=== PATIENT | female | born 1990 | race Caucasian/White ===

== ENCOUNTER → 2020-02-18 15:03 | Outpatient (BNVA) | payer SELFPAY | PROVIDERS: Visit Provider Nurse Practitioner Family | DX: R10.2 Pelvic and perineal pain (principal); N73.9 Female pelvic inflammatory disease, unspecified | CPT/HCPCS: 80053; 81000; 81025; 84450; 85025; 87070; 87491; 87591; 87661 ==

== ENCOUNTER → 2020-02-23 13:27 | Outpatient (BNVA) | payer SELFPAY | PROVIDERS: Visit Provider Nurse Practitioner Family | DX: R74.8 Abnormal levels of other serum enzymes (principal); Z11.59 Encounter for screening for other viral diseases | CPT/HCPCS: 86705; 86706; 86709; 86803; 87340 ==

== ENCOUNTER 2020-07-21 14:37 | Emergency (ER) | payer OTHER, SELFPAY ==
--- NOTE | 2020-07-21 14:42 | W.ED.COVID ---
HPI - COVID General: Chief Complaint: COVID symptoms Stated Complaint: COVID SYMPTOMS Time Seen by Provider: 07/21/20 14:38 Source: patient Mode of arrival: ambulatory Limitations: no limitations History of Present Illness: HPI Narrative: 30-year-old female states she is concerned she may have a sinus infection or Covid. States she had sinus congestion along with a slight cough and decreased taste and smell. She denies any fever. Denies any worsening improving factors. She has had sick contacts but does not know anyone that had Covid. Denies any vomiting or diarrhea. She is in no distress here. COVID 19 common symptoms: positive non-productive cough and body aches; negative headache(s), throat pain, nausea, vomiting or diarrhea COVID 19 other sytmptoms: negative chest pain COVID Results: No Data to Display Review of Systems Const: Reports: body aches Eyes: Denies: blurry vision or eye discomfort ENMT: Denies: throat pain or dental pain Card: Denies: chest pain Resp: Reports: non-productive cough GI: Denies: abdominal pain, nausea, vomiting or diarrhea : Denies: dysuria Musc: Denies: neck pain or back pain Skin/Breast: Denies: rash Neuro: Denies: headache(s) Psych: Denies: depression Octaviano/Lymph: Denies: easy bruising All/Imm: Denies: urticaria PFSH ED PFSH: Medical History (Updated 07/21/20 @ 14:40 by Mena Membreno MD) Anxiety Chronic neck pain Social History Smoking and tobacco status: current every day smoker cigarettes Packs smoked per day: 1 Alcohol intake: never Lives independently: Yes Household members: significant other Housing: House Marital status: Single Number of children: 2 History of recent travel: No Female Reproductive History: Date of last menstrual period: 02/06/20 Para: 2 Physical Exam Const: COMMON NORMALS: no acute distress, patient oriented x3 and healthy appearing HENMT: COMMON NORMALS: normocephalic and atraumatic HEAD & SCALP: normocephalic and atraumatic Eye: COMMON NORMALS: Equal, round and reactive pupils present and EOMs intact bilaterally PUPIL: Yes Equal, round and reactive pupils present Neck/C-Spine: COMMON NORMALS: full ROM and supple Chest: COMMONS NORMALS: normal inspection of the chest and normal palpation of entire chest wall Resp: COMMON NORMALS: normal respiratory effort, No retractions, No use of accessory muscles and clear to auscultation bilaterally AUSCULTATION: clear to auscultation bilaterally Cardio: COMMON NORMALS: regular rate, regular rhythm and No murmurs present (Cardio) RATE: regular rate RHYTHM: regular rhythm GI: COMMON NORMALS: Normal to inspection, nondistended, normoactive bowel sounds present, Soft to palpation, non-tender and no masses PALPATION: Yes Soft to palpation Extremity: COMMON NORMALS: normal to inspection and full ROM Neuro: COMMON NORMALS: patient oriented x3, moves all extremities and no focal motor deficits Psych: COMMON NORMALS: mental status grossly normal, Normal thought process present and cooperative THOUGHT PROCESS: Normal thought process present Skin: COMMON NORMALS: no rashes or lesions noted and no wounds GENERAL SKIN EXAM: no rashes or lesions noted MDM - COVID MDM Narrative: Medical decision making narrative: Patient presents here with possible Covid or sinus infection. Patient given Decadron here and will prescribe Keflex. Will do a Covid PTC. She is to follow-up with PCP and return if worsening. She understands and agrees to plan. COVID Results: No Data to Display Discharge Plan Discharge Patient Disposition: Home Clinical Impression: Suspected severe acute respiratory syndrome coronavirus 2 (SARS-CoV-2) infection, Suspected 2019-nCoV infection Condition: Stable Prescriptions: New Keflex 500 mg capsule 500 mg PO Q6H 7 Days Qty: 28 RF: 0 No Action magnesium hydroxide [Dhaliwal Milk of Magnesia] 400 mg/5 mL suspension 15 ml PO BID PRN (Reason: constipation) 30 Days Qty: 3000 RF: 5 Excedrin Extra Strength 250-250-65 mg tablet 1 tab PO Q6H PRN (Reason: pain) 7 Days Qty: 28 RF: 5 amoxicillin 875 mg tablet 875 mg PO BID 10 Days Qty: 20 RF: 0 ibuprofen 800 mg tablet 800 mg PO BID PRN (Reason: pain) 30 Days Qty: 60 RF: 0 trazodone 100 mg tablet 100 mg PO .hs 30 Days Qty: 30 RF: 5 ondansetron HCl [Zofran] 8 mg tablet 8 mg PO Q8H PRN (Reason: nausea and vomiting) 7 Days Qty: 21 RF: 0 gabapentin 300 mg capsule 300 mg PO TID 30 Days Qty: 90 RF: 5 bupropion HCl [Wellbutrin SR] 150 mg tablet sustained-release 12 hr 150 mg PO DAILY 30 Days Qty: 30 RF: 2 cyclobenzaprine 10 mg tablet 10 mg PO BID PRN (Reason: muscle spasm) 30 Days Qty: 60 RF: 2 Discharge Orders: Discharge ED (Routine); Ordered 07/21/20 Ordered By: Mena Membreno Discharge Diet: Advance as tolerated Discharge Activity: Resume usual activity Patient Instructions: Sinusitis (ED) Coding Level of Care Code ED Secondary English Teacher for Brock Lopez
[2020-07-21 14:49] VITALS: BP 127/90; PULSE 106; RESP 16; O2SAT 96; BMI 27.4
[2020-07-21] MEDS: dexamethasone 4 mg Tablet 10 MG PO (15:00)
[2020-07-22 15:36] LABS: Coronavirus Lab Test PTC Negative
--- NOTE | 2020-07-23 09:15 | PC.NURSE ---
Pt called and notified of negative COVID result.
== END 2020-07-21 15:03 | disposition home or self-care (01) ==
PROVIDERS: Emergency Provider Emergency Medicine
DX: Z20.828 Contact with and (suspected) exposure to other viral communicable diseases (principal); F17.210 Nicotine dependence, cigarettes, uncomplicated
CPT/HCPCS: 12345; 87635; 99281; 99283; J8540

== ENCOUNTER → 2020-08-17 12:56 | Outpatient (BNVA) | payer OTHER, SELFPAY | PROVIDERS: Visit Provider Family Medicine | DX: Z20.828 Contact with and (suspected) exposure to other viral communicable diseases (principal) | CPT/HCPCS: 87426 ==

== ENCOUNTER → 2021-08-08 15:30 | Outpatient (BNVA) | payer OTHER, SELFPAY | PROVIDERS: Visit Provider Family Medicine | DX: B19.20 Unspecified viral hepatitis C without hepatic coma (principal) | CPT/HCPCS: 87522; 87902 ==

== ENCOUNTER → 2021-12-28 11:36 | Outpatient (BNVA) | payer BC, MEDICAID, SELFPAY | PROVIDERS: Visit Provider Internal Medicine | DX: B19.20 Unspecified viral hepatitis C without hepatic coma (principal); R56.9 Unspecified convulsions; Z20.828 Contact with and (suspected) exposure to other viral communicable diseases; F41.9 Anxiety disorder, unspecified; M54.2 Cervicalgia; G89.29 Other chronic pain | CPT/HCPCS: 80053; 82105; 85025 ==

== ENCOUNTER → 2022-02-16 13:59 | Outpatient (BNVA) | payer BC, MEDICAID, SELFPAY | PROVIDERS: Visit Provider Nurse Practitioner Family | DX: M54.2 Cervicalgia (principal); G89.29 Other chronic pain; B36.9 Superficial mycosis, unspecified; R51.9 Headache, unspecified; B19.20 Unspecified viral hepatitis C without hepatic coma; T14.8XXA Other injury of unspecified body region, initial encounter | CPT/HCPCS: 80053; 84443; 85025 ==

== ENCOUNTER 2022-03-22 14:11 | Outpatient (CLI) | payer BC, MEDICAID, SELFPAY ==
--- NOTE | 2022-03-22 14:30 | US_ITS ---
WS: [id number] RIGHT UPPER QUADRANT ULTRASOUND HISTORY: HEP C COMPARISON: None available. Liver: 17.0 cm in length. Liver is top normal size. Normal appearance of the liver. Surface of the li catrachita is normal. Portal Vein: Normal hepatopetal flow with monophasic waveform. Gallbladder: Normally distended gallbladder with no stones or wall thickening. CBD: 0.5 cm Pancreas: Normal size and echogenicity. Right kidney: 12.2 cm in length. Normal size and echogenicity. No hydronephrosis or mass. Aorta and IVC: Unremarkable abdominal aorta and IVC. No ascites. US/US liver [id number] IMPRESSION: Normal RIGHT upper quadrant ultrasound.
== END 2022-03-22 14:12 | disposition home or self-care (01) ==
LOC: RAD 14:12
PROVIDERS: PCP Nurse Practitioner Family; Visit Provider Nurse Practitioner Family
DX: B19.20 Unspecified viral hepatitis C without hepatic coma (principal)
CPT/HCPCS: 76705

== ENCOUNTER → 2022-09-04 10:23 | Outpatient (BNVA) | payer BC, MEDICAID, SELFPAY | PROVIDERS: PCP Nurse Practitioner Family; Visit Provider Nurse Practitioner Family | DX: F41.9 Anxiety disorder, unspecified (principal); G89.29 Other chronic pain; L65.9 Nonscarring hair loss, unspecified; M54.2 Cervicalgia; R56.9 Unspecified convulsions; R51.9 Headache, unspecified | CPT/HCPCS: 80053; 82306; 82607; 84443; 85025 ==

== ENCOUNTER 2022-11-22 14:42 | Outpatient (CLI) | payer BC, MEDICAID, SELFPAY ==
--- NOTE | 2022-11-22 15:15 | MR_ITS ---
WS: [id number] MRI CERVICAL SPINE NONCONTRAST TECHNIQUE: Sagittal T1, T2 and STIR imaging. Axial T2, gradient, and fiesta imaging. CLINICAL INFORMATION: M54.2 - Cervicalgia COMPARISON: None. FINDINGS: Straightening with slight reversal normal cervical lordosis. Mild disc bulging C5-C6 and C6-C7. Mary l intraligamentous soft tissues. No evidence of ligamentous injury or intraspinous edema. No evidence of cord contusion. C2-C3: Normal. C3-C4: Normal. C4-C5: No significant disc bulging. Mild LEFT facet arthropathy. Spinal canal and foramen are patent. C5-C6: Mild disc bulging with slight contact of the RIGHT ventral cervical cord. Spinal canal is casillas nt. Mild facet arthropathy. Mild RIGHT bony foraminal narrowing. C6-C7: Mild disc bulging and osteophytic ridging. Mild RIGHT and no significant LEFT foraminal narrow ing. Mild facet arthropathy. Spinal canal is patent. C7-T1: Spinal canal and foramen are patent. Visualized brain stem structures: Incidental slightly low-lying cerebellar tonsils. Normal 4th ventri manan. Prevertebral soft tissues: Normal. MR/MR cervical spin wo con* [id number] IMPRESSION: 1. Straightening with slight reversal normal cervical lordosis. 2. Tiny shallow disc protrusion C5-C6 and C6-C7 with slight contact of the RIG HT ventral cervical cord at C5-C6. No significant central canal stenosis. 3. Mild RIGHT C5-C6 and RIGHT C6-C7 bony foraminal narrowing. 4. Mild facet arthropathy C4-C5 C5-C6 and C6-C7. 5. No evidence of ligamentous injury.
== END 2022-11-22 14:43 | disposition home or self-care (01) ==
PROVIDERS: PCP Nurse Practitioner Family; Visit Provider Nurse Practitioner Family
DX: G89.29 Other chronic pain (principal); R22.1 Localized swelling, mass and lump, neck; R51.9 Headache, unspecified; R29.898 Other symptoms and signs involving the musculoskeletal system; M50.222 Other cervical disc displacement at C5-C6 level; M48.02 Spinal stenosis, cervical region; M47.892 Other spondylosis, cervical region
CPT/HCPCS: 72141

== ENCOUNTER → 2022-11-23 14:00 | Outpatient (BNVA) | payer BC, MEDICAID, SELFPAY | PROVIDERS: PCP Nurse Practitioner Family; Referring Provider Nurse Practitioner Family; Visit Provider Nurse Practitioner Women's Health | DX: Z12.4 Encounter for screening for malignant neoplasm of cervix (principal) | CPT/HCPCS: 87624 ==

== ENCOUNTER → 2022-12-26 08:03 | Outpatient (BNVA) | payer BC, MEDICAID, SELFPAY | PROVIDERS: PCP Nurse Practitioner Family; Referring Provider Nurse Practitioner Family; Visit Provider Orthopaedic Surgery | DX: M54.2 Cervicalgia (principal) | CPT/HCPCS: 72050 ==

== ENCOUNTER 2023-01-24 13:22 | Emergency (ER) | payer BC, MEDICAID, SELFPAY ==
[2023-01-24 13:40] VITALS: BP 162/105; PULSE 68; RESP 17; TEMP 36.7; O2SAT 99; BMI 28.3
[2023-01-24 13:50] VITALS: BP 162/105; PULSE 68; RESP 17; O2SAT 99
--- NOTE | 2023-01-24 13:53 | W.ED.DENTAL ---
HPI - Dental/Oral General: Chief complaint: Dental/Oral Stated complaint: infection, swollen lymph nodes, toothache Time Seen by Provider: 01/24/23 13:48 History of Present Illness: Patient presents to the ER with chief complaint of right dental pain and swollen lymph nodes. Patient states she may have a sinus infection as she is been blowing out bloody mucus. Patient states she has had this several times in the past but is not been treated for it because it went away on its own this time he just keeps getting worse. MD Complaint: tooth pain Location: Tooth # (Approximately tooth [id number]) Onset (ago): day(s) Duration: worsening Severity: moderate Relieving factors: nothing Exacerbating factors: chewing, cold and heat Treatment prior to arrival: oral analgesic (OTC) Review of Systems General: Reports: 10 or more systems reviewed and unremarkable except in HPI and below PFSH ED PFSH: Medical History Anxiety Chronic neck pain Hepatitis C (~2021) took the medication for treatment; needs to be retested-- will see Mihaela Methamphetamine abuse in remission remission since 2020. Murmur, heart No pertinent past medical history neghx: htn,dm,thyroid,dvt/pe PCP: Jana David Surgical History H/O tubal ligation (~2006) Hx of section 2004 2006 Family History Denies family history of Colon cancer Ovarian cancer Diabetes Heart disease Hyperlipidemia Breast cancer Hypertension Uterine cancer Thyroid condition Stroke Social History Substance/Drug Use: never Female Reproductive History: Para: 2 Physical Exam Const: COMMON NORMALS: no acute distress, average body habitus, patient oriented x3, no limitations, healthy appearing, alert and well nourished HENMT: COMMON NORMALS: normocephalic, atraumatic, hearing grossly normal bilaterally, external ears normal, Normal external nose present and moist oral mucous membranes HEAD & SCALP: normocephalic and atraumatic NOSE: Normal external nose present EXTERNAL EAR: Yes external ears normal Eye: COMMON NORMALS: Equal, round and reactive pupils present, EOMs intact bilaterally, conjunctivae normal and no scleral icterus CONJUNCTIVA: Yes conjunctivae normal PUPIL: Yes Equal, round and reactive pupils present Neck/C-Spine: COMMON NORMALS: no JVD and Thyroid normal GENERAL: Yes normal visual inspection, Yes trachea midline and Yes lymphadenopathy (Right-sided) Lymphadenopathy location: anterior cervical and posterior cervical THYROID: Thyroid normal Chest: COMMONS NORMALS: normal inspection of the chest and normal palpation of entire chest wall Resp: COMMON NORMALS: normal respiratory effort, No retractions, No use of accessory muscles and clear to auscultation bilaterally AUSCULTATION: clear to auscultation bilaterally Cardio: COMMON NORMALS: no JVD, regular rate, regular rhythm, S1 normal heart sound present, S2 normal heart sound present, No gallops present (Cardio), No clicks present (Cardio) and No murmurs present (Cardio) RATE: regular rate RHYTHM: regular rhythm HEART SOUNDS: S1 normal heart sound present and S2 normal heart sound present GI: COMMON NORMALS: Normal to inspection, nondistended, normoactive bowel sounds present, Soft to palpation, non-tender, No hepatosplenomegaly present and no masses PALPATION: Yes Soft to palpation and Yes No hepatosplenomegaly present Neuro: COMMON NORMALS: patient oriented x3 SENSORIUM/ORIENTATION: Yes alert Course Vital Signs: Vital signs: Vital Signs Temperature 98.1 F 01/24/23 13:40 Pulse Rate 68 01/24/23 13:50 Respiratory Rate 17 01/24/23 13:50 Blood Pressure 162/105 01/24/23 13:50 Pulse Oximetry 99 01/24/23 13:50 Oxygen Delivery Me thod Room Air 01/24/23 13:50 MDM - Dental/Oral Medical Decision Making Patient presents to the ER with right-sided dental pain and lymphadenopathy. Also right-sided sinusitis like pain. Patient does have fillings on that right side. Patient will be discharged on antibiotics and a mild pain medicine and is told to follow-up with her dentist approximately a neck 7 to 10 days or sooner as needed. Differential Diagnosis Likely toothache and aphthous ulcer; Unlikely gingival abscess, dental caries or fracture of tooth Medical Records I reviewed the patient's medical records. Lab Data I reviewed the patient's lab results. Discharge Plan Discharge Patient Disposition: Home Clinical Impression: Toothache, Anterior cervical adenopathy Condition: Stable Prescriptions: New amoxicillin-pot clavulanate 875-125 mg tablet 1 tab PO Q12H Qty: 14 0RF meloxicam 7.5 mg tablet 7.5 mg PO BID PRN (Reason: pain) Qty: 14 0RF No Action buprenorphine HCl 8 mg tablet, sublingual 8 mg sublingual DAILY cyclobenzaprine 10 mg tablet 10 mg PO TID PRN (Reason: muscle spasm) Qty: 60 0RF Excedrin Extra Strength 250-250-65 mg tablet 2 tab PO Q6H PRN (Reason: pain) Qty: 90 5RF Discharge Orders: Discharge ED (Routine); Ordered 01/24/23 Ordered By: Ricki Miranda Referrals: Makenna David FNP-C [Primary Care Provider] - Patient Instructions: Lymphadenopathy, Toothache (ED) Activity Restrictions/Additional Instructions: Please take your prescriptions as directed. Please follow-up with your primary care doctor and/or dentist as needed in the next 7 to 10 days for further evaluation and treatment may be necessary. Coding Level of Care Code ED Automotive Vehicle Inspector for Brock Lopez
== END 2023-01-24 14:06 | disposition home or self-care (01) ==
PROVIDERS: Emergency Provider Emergency Medicine; PCP Nurse Practitioner Family
DX: K08.89 Other specified disorders of teeth and supporting structures (principal); R59.9 Enlarged lymph nodes, unspecified; Z86.19 Personal history of other infectious and parasitic diseases
CPT/HCPCS: 99283

== ENCOUNTER 2023-03-17 17:04 | Emergency (ER) | payer BC, MEDICAID, SELFPAY ==
[2023-03-17 17:24] VITALS: BP 212/107; PULSE 77; RESP 18; TEMP 36.7; O2SAT 98
[2023-03-17 19:30] LABS: Basophils % 0.3 %; Eosinophils # 0.1 10^3/uL (0.0-0.8); Eosinophils % 1.3 %; Hemoglobin 13.9 g/dL (11.5-15.3); Lymphocytes # 2.3 10^3/uL (0.8-4.8); Lymphocytes % 32.6 %; Mean Corpuscular HGB Conc 32.3 g/dL (30.0-36.0); Mean Corpuscular Hemoglobin 30.1 pg (28.0-34.0); Mean Corpuscular Volume 93.1 fl (81-99); Mean Platelet Volume 9.2 fL (7.4-10.4); Monocytes # 0.4 10^3/uL (0.2-0.9); Monocytes % 5.7 %; Neutrophils # 4.24 10^3/uL (1.8-7.7); Nucleated Red Blood Cells % 0 %; Platelet Count 268 10^3/cmm (130-400); Red Blood Count 4.62 10^6/uL (4.1-5.3); Red Cell Distribution Width 13.2 % (12.1-15.1); White Blood Count 7.1 10^3/uL (4.0-10.0)
[2023-03-17 19:38] LABS: Alanine Aminotransferase 8 U/L (0-33); Albumin Level 4.6 g/dL (3.5-5.2); Alkaline Phosphatase 52 U/L (35-105); Aspartate Amino Transferase 16 U/L (0-32); Blood Urea Nitrogen 13 mg/dL (6-20); Calcium 9.6 mg/dL (8.5-10.5); Carbon Dioxide 22 mmol/L (22-29); Chloride 102 mmol/L (98-107); Globulin 3.1 g/dL (1.3-4.6); Glomerular Filtration Rate 114.4 mL/min (90-130); Glucose 117 mg/dL (65-115); Lipase 18 U/L (13-60); Osmolality Calculated 283 mOsm/kg (285-295); Sodium 136 mmol/L (136-145); Total Bilirubin 0.3 mg/dL (0.15-1.2); Total Protein 7.7 g/dL (6.6-8.7)
[2023-03-17 19:40] LABS: Anion Gap 16.2 (5-19); Potassium 4.2 mmol/L (3.5-5.1)
[2023-03-17 20:34] VITALS: BP 196/113; PULSE 64; RESP 29; O2SAT 98
[2023-03-17 20:37] VITALS: BP 196/113; PULSE 58; RESP 20; TEMP 37.1; O2SAT 98
--- NOTE | 2023-03-17 20:46 | W.ED.WEAKNES ---
HPI - Weakness General: Chief complaint: Weakness Stated complaint: n/v, no appetite, 10xdays Time Seen by Provider: 03/17/23 20:03 History of Present Illness: Patient is a 32-year-old female that presents to the emergency department with complaints of malaise, fatigue, nausea, and some intermittent abdominal pain. Patient states she has not had an appetite for 10 days. She is still drinking plenty of fluids. She is concerned about enlarged lymph nodes. She may be running intermittent fevers. Associated symptoms: Reports chills, fever(s) and headache(s); Denies chest pain, confusion, dysuria, easy bruising, nausea or vomiting Review of Systems General: Reports: 10 or more systems reviewed and unremarkable except in HPI and below Const: Reports: fever(s), chills, body aches, change in appetite, fatigue and malaise; Denies: change in weight Eyes: Denies: change in vision, eye discomfort, eye discharge or eye redness ENMT: Denies: throat pain, enlarged tonsils, odynophagia, hoarseness, ear or mastoid pain, ear discharge, change in hearing, tinnitus, nasal discharge, nasal congestion, post nasal drip or sinus pain Card: Denies: chest pain, palpitations, irregular heart rhythm, edema, dyspnea on exertion, orthopnea or leg pain with exertion Resp: Denies: dyspnea, productive cough, non-productive cough, wheezing, stridor or chest congestion GI: Denies: abdominal pain, nausea, vomiting, dysphagia, diarrhea, constipation, bloating, GI cramping or hematochezia : Denies: flank pain, difficulty voiding, dysuria, urinary frequency, urinary urgency, urinary hesitancy, oliguria or hematuria Musc: Denies: neck pain, back pain, extremity pain, joint pain, joint swelling, joint redness, joint warmth or muscle weakness Skin/Breast: Denies: rash, pruritus, erythema, photosensitivity or new lesions Neuro: Reports: headache(s); Denies: numbness in extremities, weakness in extremities, sensory changes, lack of coordination, difficulty walking, frequent falls, dizziness, confusion, Slurred speech present, difficulty communicating thoughts, seizure-like activity or involuntary movements Endo: Denies: polyuria, polydipsia or tired all the time Octaviano/Lymph: Denies: easy bruising or easy bleeding [facility] ED PFSH: Medical History Anxiety Chronic neck pain Hepatitis C (~2021) took the medication for treatment; needs to be retested-- will see [facility] Methamphetamine abuse in remission remission since 2020. Murmur, heart No pertinent past medical history neghx: htn,dm,thyroid,dvt/pe PCP: Jana David Surgical History H/O tubal ligation (~2006) Hx of section 2004 2006 Family History Denies family history of Colon cancer Ovarian cancer Diabetes Heart disease Hyperlipidemia Breast cancer Hypertension Uterine cancer Thyroid condition Stroke Social History Substance/Drug Use: never Female Reproductive History: Para: 2 Physical Exam Const: COMMON NORMALS: no acute distress, patient oriented x3 and alert GENERAL APPEARANCE: cooperative ORIENTATION/CONSCIOUSNESS: Yes awake, Yes oriented to person, Yes oriented to place and Yes oriented to time HENMT: COMMON NORMALS: normocephalic and atraumatic HEAD & SCALP: normocephalic and atraumatic FACE & SINUS: normal facial exam MOUTH: Normal oral and palatal mucosa present THROAT: posterior oropharynx normal Eye: COMMON NORMALS: Equal, round and reactive pupils present, EOMs intact bilaterally, conjunctivae normal and no scleral icterus GENERAL EYE: appearance normal, both eyes and all related structures ALIGNMENT: Yes alignment normal PERIORBITAL: periorbital findings normal CONJUNCTIVA: Yes conjunctivae normal PUPIL: Yes Equal, round and reactive pupils present Neck/C-Spine: COMMON NORMALS: full ROM GENERAL: Yes normal visual inspection Lymph: LYMPHATIC: no lymphadenopathy noted Chest: COMMONS NORMALS: normal inspection of the chest Breast/axilla inspection: Yes no chest deformity, asymmetry, normal contours, no nodules, masses, tenderness Resp: COMMON NORMALS: normal respiratory effort, No retractions, No use of accessory muscles and clear to auscultation bilaterally EFFORT & INSPECTION: Yes able to speak in complete sentences and Yes symmetric chest movement AUSCULTATION: clear to auscultation bilaterally Cardio: COMMON NORMALS: regular rate, regular rhythm and Peripheral pulses 2+ throughout RATE: regular rate RHYTHM: regular rhythm PERIPHERAL PULSES: Peripheral pulses 2+ throughout GI: COMMON NORMALS: Normal to inspection, nondistended, normoactive bowel sounds present, Soft to palpation, non-tender and No hepatosplenomegaly present INSPECTION: Yes normal to inspection AUSCULTATION: Yes normoactive bowel sounds PALPATION: Yes Soft to palpation and Yes No hepatosplenomegaly present RECTAL EXAM: deferred Extremity: COMMON NORMALS: normal to inspection GENERAL: Yes normal exam except as noted Neuro: COMMON NORMALS: patient oriented x3 SENSORIUM/ORIENTATION: Yes alert, Yes oriented to person, Yes oriented to place and Yes oriented to time CRANIAL NERVES: Yes CN normal except as noted Psych: COMMON NORMALS: mental status grossly normal, Normal thought process present, cooperative, activity/motor behavior normal, denies homicidal ideation and denies suicidal ideation THOUGHT PROCESS: Normal thought process present Skin: COMMON NORMALS: no rashes or lesions noted, no wounds and turgor normal GENERAL SKIN EXAM: no rashes or lesions noted and turgor normal Course Vital Signs: Vital signs: Vital Signs Temperature 98.7 F 03/17/23 20:37 Pulse Rate 79 03/17/23 22:15 Respiratory Rate 20 H 03/17/23 22:15 Blood Pressure 117/73 03/17/23 22:15 Pulse Oximetry 98 03/17/23 22:15 Oxygen Delivery Me thod Room Air 03/17/23 20:37 MDM - Weakness Medical Decision Making Patient was evaluated in the emergency department today for complaints of generalized weakness, fatigue, poor appetite. Patient states symptoms have gone on for 10 days. Patient had a differential diagnosis that included dehydration, electrolyte abnormality, renal disease, liver dysfunction, viral infection, tickborne illness. Furthermore an added differential included parasite infestation. Her was diagnosed with worms In the emergency department I obtained laboratory studies that included CBC, CMP, lipase, stool specimen and tickborne panel. We also obtained a urinalysis with urine drug screen and urine test. Negative urine , positive for marijuana, pretty hazy urine but negative for bacteria or bacteria byproducts. The laboratory panels did not reveal any leukocytosis, anemias, electrolyte disturbance, organ dysfunction. Her stool specimen is pending. She is going to take a sample cup home with her to bring back when she is able to have a bowel movement. Her tick panel will be obtained here but will not be back in time for her discharge. She will need to be called with results if positive. She was noted as being mildly hypertensive. She was given 10 mg of hydralazine and later followed with 10 mg of labetalol. She responded nicely to these medications. She will likely need follow-up with primary care to further evaluate blood pressure concerns. Patient is going to discharge home. She has been able to eat and drink some while here in the emergency department. She is going to continue to observe her symptoms. We talked about repeating labs and obtaining a CT if symptoms persist. She is agreeable with this. She will follow-up with her primary care doctor and return here as needed. All questions answered Lab Data 03/17/23 19:02 03/17/23 19:02 Laboratory Results WBC 7.1 10^3/uL (4.0-10.0) 03/17/23 19:02 RBC 4.62 10^6/uL (4.1-5.3) 03/17/23 19:02 Hgb 13.9 g/dL (11.5-15.3) 03/17/23 19:02 Hct 43.0 % (37.0-47.0) 03/17/23 19: MCV 93.1 fl (81-99) 03/17/23 19:02 MCH 30.1 pg (28.0-34.0) 03/17/23 19:02 MCHC 32.3 g/dL (30.0-36.0) 03/17/23 19:02 RDW 13.2 % (12.1-15.1) 03/17/23 19:02 Plt Count 268 10^3/cmm (130-400) 03/17/23 19:02 MPV 9.2 fL (7.4-10.4) 03/17/23 19:02 Neut % (Auto) 60.0 % 03/17/23 19:02 Lymph % (Auto) 32.6 % 03/17/23 19:02 [place] % (Auto) 5.7 % 03/17/23 19:02 Eos % (Auto) 1.3 % 03/17/23 19:02 Baso % (Auto) 0.3 % 03/17/23 19:02 Neut # (Auto) 4.24 10^3/uL (1.8-7.7) 03/17/23 19:02 Lymph # (Auto) 2.3 10^3/uL (0.8-4.8) 03/17/23 19:02 [place] # (Auto) 0.4 10^3/uL (0.2-0.9) 03/17/23 19:02 Eos # (Auto) 0.1 10^3/uL (0.0-0.8) 03/17/23 19:02 Baso # (Auto) 0.0 10^3/uL (0.0-0.1) 03/17/23 19:02 Nucleated RBC % (auto) 0 % 03/17/23 19:02 Nucleated RBCs # 0.0 /100WBC 03/17/23 19:02 Sodium 136 mmol/L (136-145) 03/17/23 19:02 Potassium 4.2 mmol/L (3.5-5.1) 03/17/23 19:02 Chloride 102 mmol/L (98-107) 03/17/23 19:02 Carbon Dioxide 22 mmol/L (22-29) 03/17/23 19:02 Anion Gap 16.2 (5-19) 03/17/23 19:02 BUN 13 mg/dL (6-20) 03/17/23 19:02 Creatinine 0.6 mg/dL (0.5-0.9) 03/17/23 19:02 GFR Calculation 114.4 mL/min (90-130) 03/17/23 19:02 Glucose 117 mg/dL (65-115) H 03/17/23 19:02 Calculated Osmolality 283 mOsm/kg (285-295) L 03/17/23 19:02 Calcium 9.6 mg/dL (8.5-10.5) 03/17/23 19:02 Total Bilirubin 0.3 mg/dL (0.15-1.2) 03/17/23 19:02 AST 16 U/L (0-32) 03/17/23 19:02 ALT 8 U/L (0-33) 03/17/23 19:02 Alkaline Phosphatase 52 U/L (35-105) 03/17/23 19:02 Total Protein 7.7 g/dL (6.6-8.7) 03/17/23 19:02 Albumin 4.6 g/dL (3.5-5.2) 03/17/23 19:02 Globulin 3.1 g/dL (1.3-4.6) 03/17/23 19:02 Lipase 18 U/L (13-60) 03/17/23 19:02 HCG, Qual Negative (Negative) 03/17/23 20:54 Urine Color Yellow (Yellow) 03/17/23 20:54 Urine Appearance Hazy (CLEAR) A 03/17/23 20:54 Urine pH 5 (5-7) 03/17/23 20:54 Ur Specific [place] 1.025 (1.005-1.030) 03/17/23 20:54 Urine Protein 1+ (Negative) H 03/17/23 20:54 Urine Glucose (UA) Norm (Normal) 03/17/23 20:54 Urine Ketones 1+ (Negative) H 03/17/23 20:54 Urine Blood 3+ (Negative) H 03/17/23 20:54 Urine Nitrate Negative (Negative) 03/17/23 20:54 Urine Bilirubin Neg (Negative) 03/17/23 20:54 Urine Urobilinogen 1 mg/dL (Negative) H 03/17/23 20:54 Ur Leukocyte Esterase Negative (Negative) 03/17/23 20:54 Urine RBC 5-10 /hpf (0-2) H 03/17/23 20:54 Urine WBC None /hpf (0-5) 03/17/23 20:54 Ur Squamous Epith Cells 5-10 /hpf (0-5) H 03/17/23 20:54 Calcium Oxalate Crystal 0-4 /hpf H 03/17/23 20:54 Amorphous Sediment Not Reportable 03/17/23 20:54 Urine Bacteria Trace /hpf (NONE) 03/17/23 20:54 Urine Mucus 3+ /hpf 03/17/23 20:54 Urine Opiates Screen Negative ng/mL (Negative) 03/17/23 20:54 Ur Barbiturates Screen Negative ng/mL (Negative) 03/17/23 20:54 Ur Phencyclidine Scrn Negative ng/mL (Negative) 03/17/23 20:54 Ur Amphetamines Screen Negative ng/mL (Negative) 03/17/23 20:54 U Benzodiazepines Scrn Negative ng/mL (Negative) 03/17/23 20:54 Urine Cocaine Screen Negative ng/mL (Negative) 03/17/23 20:54 U Marijuana (THC) Screen Positive ng/mL (Negative) H 03/17/23 20:54 Discharge Plan Discharge Patient Disposition: Home Clinical Impression: HBP (high blood pressure), Malaise Condition: Stable Prescriptions: No Action buprenorphine HCl 8 mg tablet, sublingual 8 mg sublingual DAILY cyclobenzaprine 10 mg tablet 10 mg PO TID PRN (Reason: muscle spasm) Qty: 60 0RF doxycycline hyclate 100 mg capsule 100 mg PO BID Qty: 20 0RF ibuprofen 800 mg tablet 800 mg PO TID PRN (Reason: pain) Qty: 42 0RF Excedrin Extra Strength 250-250-65 mg tablet 2 tab PO Q6H PRN (Reason: pain) Qty: 90 5RF amoxicillin-pot clavulanate 875-125 mg tablet 1 tab PO Q12H Qty: 14 0RF meloxicam 7.5 mg tablet 7.5 mg PO BID PRN (Reason: pain) Qty: 14 0RF Discharge Orders: Discharge ED (Routine); Ordered 03/17/23 Ordered By: Lino Manriquez Referrals: Makenna David FNP-C [Primary Care Provider] - Discharge Diet: Advance as tolerated Discharge Activity: Resume usual activity Patient Instructions: Heart Healthy Diet (ED), Weakness (ED), DASH Eating Plan (ED), Fatigue (ED), Pain Management Activity Restrictions/Additional Instructions: Please return to the emergency department for new concerning or worsening symptoms Please bring your stool specimen back for laboratory evaluation Coding Level of Care Code ED Technical Laboratory Asst for Brock Lopez
[2023-03-17] MEDS: hyDRALAzine 20 mg/mL INJ 1 mL 10 MG IVP (21:00)
[2023-03-17 21:09] LABS: Amphetamines Screen Urine Negative (Negative); Barbiturates Screen Urine Negative (Negative); Benzodiazepines Screen Urine Negative (Negative); Cocaine Screen Urine Negative (Negative); Opiate Screen Urine Negative (Negative); PCP Screen Urine Negative (Negative); THC Screen Urine Positive (Negative)
[2023-03-17 21:12] VITALS: BP 179/121; PULSE 65; RESP 24; O2SAT 98
[2023-03-17 21:15] LABS: HCG Qualitative Urine. Negative (Negative); Urine Appearance Hazy (CLEAR); Urine Color Yellow (Yellow)
[2023-03-17 21:16] LABS: Add Urine Microscopic? YES; Bilirubin Urine Neg (Negative); Blood Urine 3+ (Negative); Glucose Urine UA Norm (Normal); Ketones Urine 1+ (Negative); Leukocyte Esterase Urine Negative (Negative); Nitrate Urine Negative (Negative); Protein Urine 1+ (Negative); Specific Gravity, Urine 1.025 (1.005-1.030); Urobilinogen Urine 1 mg/dL (Negative); pH Urine 5 (5-7)
[2023-03-17 21:18] LABS: Bacteria Urine TRACE /hpf; Mucus Urine 3+ /hpf
[2023-03-17 21:20] LABS: Calcium Oxalate Crystals Urine 0-4 /hpf
[2023-03-17 22:15] VITALS: BP 117/73; PULSE 79; RESP 20; O2SAT 98
[2023-03-17] MEDS: labetalol 5 mg/mL SDV 20mL 10 MG IVP (22:26)
[2023-03-17 22:49] VITALS: BP 167/107; PULSE 97; RESP 20; O2SAT 98
[2023-03-19 13:30] LABS: Lyme AB Screen <0.90 index
[2023-03-23 16:44] LABS: RMSF IGG NOT DETECTED; RMSF IGM NOT DETECTED
[2023-03-23 21:04] LABS: E. Chaffeensis AB IGG <1:64; E. Chaffeensis AB IGM <1:20
== END 2023-03-17 22:51 | disposition home or self-care (01) ==
PROVIDERS: Emergency Medicine; Emergency Provider Nurse Practitioner; PCP Nurse Practitioner Family
DX: I10 Essential (primary) hypertension (principal); R53.81 Other malaise; Z86.19 Personal history of other infectious and parasitic diseases
CPT/HCPCS: 36415; 80053; 80306; 81001; 81025; 83690; 85025; 86618; 86666; 86757; 96374; 96375; 99284; J0360; J3490

== ENCOUNTER 2023-03-20 15:37 | Outpatient (CLI) | payer BC, MEDICAID, SELFPAY | END 2023-03-20 15:38 | disposition home or self-care (01) | PROVIDERS: PCP Nurse Practitioner Family; Visit Provider Physician Assistant | DX: Z01.89 Encounter for other specified special examinations (principal) | CPT/HCPCS: 82274; 83630; 87493; 87506 ==

== ENCOUNTER 2023-10-12 08:35 | Outpatient (RCR) | payer BC, MEDICAID, SELFPAY | END 2023-10-18 23:59 | disposition home or self-care (01) | LOC: TPT 08:35 | PROVIDERS: Visit Provider Physician Assistant | DX: M54.2 Cervicalgia (principal); M54.9 Dorsalgia, unspecified | CPT/HCPCS: 97163 ==

== ENCOUNTER 2023-11-19 06:00 | Outpatient (RCR) | payer BC, MEDICAID, SELFPAY | END 2023-12-18 23:59 | disposition home or self-care (01) | LOC: TPT 06:00 | PROVIDERS: Visit Provider Physician Assistant | DX: M54.2 Cervicalgia (principal); M54.9 Dorsalgia, unspecified | CPT/HCPCS: 97110; 97164 ==

== ENCOUNTER 2023-12-19 06:00 | Outpatient (RCR) | payer BC, MEDICAID, SELFPAY | END 2024-01-18 23:59 | disposition home or self-care (01) | LOC: TPT 06:00 | PROVIDERS: Visit Provider Physician Assistant | DX: M54.2 Cervicalgia (principal); M54.9 Dorsalgia, unspecified; G89.29 Other chronic pain | CPT/HCPCS: 97110; 97140 ==

== ENCOUNTER 2024-01-19 06:00 | Outpatient (RCR) | payer BC, MEDICAID, SELFPAY | END 2024-01-30 23:59 | disposition home or self-care (01) | LOC: TPT 06:00 | PROVIDERS: Visit Provider Physician Assistant | DX: M54.2 Cervicalgia (principal); M54.9 Dorsalgia, unspecified | CPT/HCPCS: 97110; 97140; 97164 ==

== ENCOUNTER 2024-01-28 17:38 | Emergency (ER) | payer BC, MEDICAID, SELFPAY ==
[2024-01-28 17:58] VITALS: BP 169/111; PULSE 77; RESP 16; TEMP 36.6; O2SAT 97
--- NOTE | 2024-01-28 19:03 | W.ED.ABDPA2 ---
HPI - Abdominal Pain General: Chief Complaint: Abdominal Pain Stated Complaint: Left rib pain, swelling Time Seen by Provider: 01/28/24 18:42 History of Present Illness: 33-year-old female with history of anxiety, chronic pain, hepatitis C and methamphetamine abuse in remission who presents to the emergency room with abdominal pain. She is complaining of left upper quadrant pain for several weeks now. She had a workup at another hospital and they told her it might be GERD. I had done a CT scan and lab work at that time. She also has several other complaints today. She says she feels like her legs are swelling up. She also feels like she has lymph nodes in her groin area. She is feeling anxious and short of breath. Review of Systems Narrative: Constitutional symptoms: Negative except as documented in HPI. Skin symptoms: Negative except as documented in HPI. Eye symptoms: Negative except as documented in HPI. ENMT symptoms: Negative except as documented in HPI. Respiratory symptoms: Negative except as documented in HPI. Cardiovascular symptoms: Negative except as documented in HPI. Gastrointestinal symptoms: Negative except as documented in HPI. Genitourinary symptoms: Negative except as documented in HPI. Musculoskeletal symptoms: Negative except as documented in HPI. Neurologic symptoms: Negative except as documented in HPI. Psychiatric symptoms: Negative except as documented in HPI. Endocrine symptoms: Negative except as documented in HPI. [facility] PFSH: Medical History Anxiety Chronic neck pain Hepatitis C (~2021) took the medication for treatment; needs to be retested-- will see [facility] Methamphetamine abuse in remission remission since 2020. Murmur, heart No pertinent past medical history neghx: htn,dm,thyroid,dvt/pe PCP: Jana David Surgical History H/O tubal ligation (~2006) Hx of section 2004 2006 Family History Denies family history of Colon cancer Ovarian cancer Diabetes Heart disease Hyperlipidemia Breast cancer Hypertension Uterine cancer Thyroid condition Stroke Social History (Updated 04/17/23 @ 16:42 by Vanna Corado) Smoking and tobacco/nicotine status: current every day tobacco/nicotine user cigarettes Packs smoked per day: 1 and e-cigarettes E-Cigarette Details: vaporizer device Second hand smoke exposure: No Alcohol intake: never Substance/Drug Use: never Female Reproductive History: Para: 2 Physical Exam Narrative: EXAM NARRATIVE: General: Alert, no acute distress. Skin: Warm, dry. Head: Normocephalic, atraumatic. Neck: Supple, trachea midline. Eye: Extraocular movements are intact. Ears, nose, mouth and throat: mucosa moist. Cardiovascular: Regular, Normal peripheral perfusion. Respiratory: Lungs are clear to auscultation, respirations are non-labored, breath sounds are equal, Symmetrical chest wall expansion. Gastrointestinal: Soft, Nontender, Non distended, Normal bowel sounds. Musculoskeletal: Normal ROM, no deformity. Neurological: Alert and oriented, No focal neurological deficit observed. Psychiatric: Cooperative, appropriate mood & affect. Course Vital Signs: Vital signs: Vital Signs Temperature 97.8 F 01/28/24 17:58 Pulse Rate 77 01/28/24 17:58 Respiratory Rate 18 01/28/24 20:36 Blood Pressure 169/111 01/28/24 17:58 Pulse Oximetry 98 01/28/24 19:39 Oxygen Delivery Me thod Room Air 01/28/24 19:39 MDM - Abdominal Pain Medical Decision Making Medical decision making: Differential diagnosis including but not limited to and based on the above HPI, review of systems and physical exam: Patient has quite a variation in complaints. She is having abdominal pain that is been fairly thoroughly worked up it sounds like in the past but we will go ahead and order lab work and imaging to evaluate this. Also has concern for lymph nodes and swelling in her legs. She has what looks like bruises on her ankle and knees. CRP was ordered. Orders placed to evaluate differential diagnosis based on the above differential, HPI and physical exam Lab Review: Laboratory results were reviewed and interpreted by myself the emergency room physician. Lab work is completely unremarkable. No leukocytosis. CRP is not elevated. No renal failure. CT of the abdomen pelvis with contrast: No acute process was identified. This was reviewed and interpreted by myself the emergency room physician. I also reviewed the radiology report. I reviewed the patient's medical record. Reexamination: Patient remained stable. Vitals are normal. No increased work of breathing. We discussed the findings and that likely with all of the symptoms and the chronicity of the symptoms she needs to follow-up with her primary doctor. To give her [place] here in the emergency room. I will place her on doxycycline for possible tick illness. Some steroids. And some anti-inflammatory. Assessment and plan: Abdominal pain - Discharged home - Discussed plan with patient. Answered any questions. - Evaluation and treatment of this problem were appropriate in the emergency setting. Lab Data 01/28/24 18:43 01/28/24 18:53 Labs/Radiology: Radiology Impressions Abdomen/Pelvis CT 01/28/24 19:38 IMPRESSION: No acute findings. Laboratory Results WBC 7.28 10^3/uL (3.29-11.43) 01/28/24 18:43 RBC 3.74 10^6/uL (3.85-5.65) L 01/28/24 18:43 Hgb 11.40 g/dL (11.27-16.99) 01/28/24 18:43 Hct 33.9 % (36-47) L 01/28/24 18:43 MCV 90.6 fl (85-98) 01/28/24 18:43 MCH 30.5 pg (27-33) 01/28/24 18:43 MCHC 33.6 g/dL (30-55) 01/28/24 18:43 RDW 11.7 % (12.1-15.1) L 01/28/24 18:43 Plt Count 274 10^3/cmm (157-399) 01/28/24 18:43 MPV 9.2 fL (7.4-10.4) 01/28/24 18:43 Neut % (Auto) 57.6 % 01/28/24 18:43 Lymph % (Auto) 31.5 % 01/28/24 18:43 [place] % (Auto) 6.3 % 01/28/24 18:43 Eos % (Auto) 4.0 % 01/28/24 18:43 Baso % (Auto) 0.3 % 01/28/24 18:43 Neut # (Auto) 4.20 10^3/uL (1.8-7.7) 01/28/24 18:43 Lymph # (Auto) 2.3 10^3/uL (0.8-4.8) 01/28/24 18:43 [place] # (Auto) 0.5 10^3/uL (0.2-0.9) 01/28/24 18:43 Eos # (Auto) 0.3 10^3/uL (0.0-0.8) 01/28/24 18:43 Baso # (Auto) 0.0 10^3/uL (0.0-0.1) 01/28/24 18:43 Nucleated RBC % (auto) 0 % 01/28/24 18:43 Nucleated RBCs # 0.0 /100WBC 01/28/24 18:43 Sodium 139 mmol/L (136-145) 01/28/24 18:53 Potassium 3.7 mmol/L (3.5-5.1) 01/28/24 18:53 Chloride 105 mmol/L (98-107) 01/28/24 18:53 Carbon Dioxide 26 mmol/L (22-29) 01/28/24 18:53 Anion Gap 11.7 (5-19) 01/28/24 18:53 BUN 14 mg/dL (6-20) 01/28/24 18:53 Creatinine 0.5 mg/dL (0.5-0.9) 01/28/24 18:53 GFR Calculation 140.4 mL/min (90-130) H 01/28/24 18:53 Glucose 104 mg/dL (65-115) 01/28/24 18:53 Calculated Osmolality 289 mOsm/kg (285-295) 01/28/24 18:53 Lactic Acid 1.2 mmol/L (0.5-2.2) 01/28/24 18:23 Calcium 8.7 mg/dL (8.5-10.5) 01/28/24 18:53 Total Bilirubin 0.2 mg/dL (0.15-1.2) 01/28/24 18:53 AST 15 U/L (0-32) 01/28/24 18:53 ALT 11 U/L (0-33) 01/28/24 18:53 Alkaline Phosphatase 53 U/L (35-105) 01/28/24 18:53 C-Reactive Protein 7.7 mg/L (0.0-4.9) H 01/28/24 18:53 Total Protein 6.5 g/dL (6.6-8.7) L 01/28/24 18:53 Albumin 4.1 g/dL (3.5-5.2) 01/28/24 18:53 Globulin 2.4 g/dL (1.3-4.6) 01/28/24 18:53 Lipase 22 U/L (13-60) 01/28/24 18:53 HCG, Qual Negative (Negative) 01/28/24 18:53 Urine Color Yellow (Yellow) 01/28/24 19:07 Urine Appearance Clear (CLEAR) 01/28/24 19:07 Urine pH 5 (5-7) 01/28/24 19:07 Ur Specific [place] 1.020 (1.005-1.030) 01/28/24 19:07 Urine Protein Trace (Negative) 01/28/24 19:07 Urine Glucose (UA) Norm (Normal) 01/28/24 19:07 Urine Ketones 1+ (Negative) H 01/28/24 19:07 Urine Blood Neg (Negative) 01/28/24 19:07 Urine Nitrate Negative (Negative) 01/28/24 19:07 Urine Bilirubin 1+ (Negative) H 01/28/24 19:07 Urine Urobilinogen 1 mg/dL (Negative) H 01/28/24 19:07 Ur Leukocyte Esterase Negative (Negative) 01/28/24 19:07 Urine RBC None /hpf (0-2) 01/28/24 19:07 Urine WBC None /hpf (0-5) 01/28/24 19:07 Ur Squamous Epith Cells 0-4 /hpf (0-5) H 01/28/24 19:07 Amorphous Sediment 1+ /hpf 01/28/24 19:07 Urine Bacteria Trace /hpf (NONE) 01/28/24 19:07 Urine Opiates Screen Negative ng/mL (Negative) 01/28/24 19:07 Ur Barbiturates Screen Negative ng/mL (Negative) 01/28/24 19:07 Ur Phencyclidine Scrn Negative ng/mL (Negative) 01/28/24 19:07 Ur Amphetamines Screen Negative ng/mL (Negative) 01/28/24 19:07 U Benzodiazepines Scrn Negative ng/mL (Negative) 01/28/24 19:07 Urine Cocaine Screen Negative ng/mL (Negative) 01/28/24 19:07 U Marijuana (THC) Screen Negative ng/mL (Negative) 01/28/24 19:07 All radiology interpretation(s) finalized by discharge Discharge Plan Discharge Patient Disposition: Home Clinical Impression: Abdominal pain Qualifiers: Abdominal location: left upper quadrant Qualified Code(s): R10.12 - Left upper quadrant pain Condition: Stable Prescriptions: New doxycycline hyclate 100 mg capsule 100 mg PO BID 7 Days Qty: 14 0RF dexamethasone 6 mg tablet 6 mg PO DAILY 5 Days Qty: 5 0RF diclofenac sodium 50 mg tablet,delayed release (DR/EC) 50 mg PO Q12H Qty: 20 0RF No Action buprenorphine HCl 8 mg tablet, sublingual 8 mg sublingual DAILY ibuprofen 800 mg tablet 800 mg PO TID PRN (Reason: pain) Qty: 42 0RF mupirocin 2 % ointment 1 applic topical BID Qty: 15 0RF rizatriptan [Maxalt-[employer]] 10 mg tablet,disintegrating See Rx Instructions PO .COMPLEX Qty: 14 3RF Rx Instructions: take 1 tab at onset of headache; if no relief may repeat 1 tab after at least 2 hrs; max = 3 tabs/24 hr PO Excedrin Extra Strength 250-250-65 mg tablet 2 tab PO Q6H PRN (Reason: pain) Qty: 90 5RF gabapentin 300 mg/6 mL (6 mL) solution 600 mg PO TID Qty: 1080 2RF methylprednisolone [Medrol ([place])] 4 mg tablets,dose pack See Rx Instructions PO PER PKG DIR Qty: 21 0RF Rx Instructions: PO PER PKG DIR hydroxyzine pamoate [Vistaril] 25 mg capsule 25 mg PO TID PRN (Reason: headache) Qty: 30 0RF Rx Instructions: Take one with baclofen for migraine pain. baclofen 10 mg tablet 5 mg PO TID PRN (Reason: headache) Qty: 30 0RF Rx Instructions: Take with hydroxyzine for headache pain levetiracetam [Keppra] 100 mg/mL solution 500 mg PO BID Qty: 300 2RF meloxicam 7.5 mg tablet 7.5 mg PO BID PRN (Reason: pain) Qty: 14 0RF Discharge Orders: Discharge ED (Routine); Ordered 01/28/24 Ordered By: Namita Dueñas Discharge Diet: Usual diet Discharge Activity: Increase activity as tolerated Patient Instructions: Abdominal Pain (ED) Activity Restrictions/Additional Instructions: Thank you for choosing [facility] for your healthcare needs today. Please realize this is an emergency room and that we are providing you with a medical screening exam and this may not be complete and all inclusive of all the testing and or work up that you may need to determine your ailment or severity of your illness. You have been screened and evaluated and felt safe for discharge. Health conditions do change or evolve sometimes and as such it is important that you follow up with your Primary Doctor to be re checked, 3-5 days is a general good time frame for follow up. You are always welcome to return to the ED for re assessment if your symptoms are worsening or you have new concerns Coding Level of Care Code ED Entry Operator for Brock Lopez
[2024-01-28 19:14] LABS: Basophils % 0.3 %; Eosinophils # 0.3 10^3/uL (0.0-0.8); Hematocrit 33.9 % (36-47); Lymphocytes # 2.3 10^3/uL (0.8-4.8); Lymphocytes % 31.5 %; Mean Corpuscular HGB Conc 33.6 g/dL (30-55); Mean Corpuscular Hemoglobin 30.5 pg (27-33); Mean Corpuscular Volume 90.6 fl (85-98); Mean Platelet Volume 9.2 fL (7.4-10.4); Monocytes # 0.5 10^3/uL (0.2-0.9); Monocytes % 6.3 %; Neutrophils % 57.6 %; Nucleated Red Blood Cells % 0 %; Platelet Count 274 10^3/cmm (157-399); Red Blood Count 3.74 10^6/uL (3.85-5.65); Red Cell Distribution Width 11.7 % (12.1-15.1); White Blood Count 7.28 10^3/uL (3.29-11.43)
[2024-01-28 19:19] LABS: HCG Qualitative Urine. Negative (Negative)
[2024-01-28 19:20] LABS: Alanine Aminotransferase 11 U/L (0-33); Albumin Level 4.1 g/dL (3.5-5.2); Alkaline Phosphatase 53 U/L (35-105); Anion Gap 11.7 (5-19); Aspartate Amino Transferase 15 U/L (0-32); Blood Urea Nitrogen 14 mg/dL (6-20); C Reactive Protein 7.7 mg/L (0.0-4.9); Calcium 8.7 mg/dL (8.5-10.5); Carbon Dioxide 26 mmol/L (22-29); Chloride 105 mmol/L (98-107); Creatinine Clr Calc Pharmacy 150.5419; Globulin 2.4 g/dL (1.3-4.6); Glomerular Filtration Rate 140.4 mL/min (90-130); Glucose 104 mg/dL (65-115); Lipase 22 U/L (13-60); Osmolality Calculated 289 mOsm/kg (285-295); Potassium 3.7 mmol/L (3.5-5.1); Sodium 139 mmol/L (136-145); Total Bilirubin 0.2 mg/dL (0.15-1.2); Total Protein 6.5 g/dL (6.6-8.7)
[2024-01-28 19:21] LABS: Urine Color Yellow (Yellow)
[2024-01-28 19:22] LABS: Bacteria Urine TRACE /hpf; Bilirubin Urine 1+ (Negative); Blood Urine Neg (Negative); Glucose Urine UA Norm (Normal); Ketones Urine 1+ (Negative); Leukocyte Esterase Urine Negative (Negative); Nitrate Urine Negative (Negative); Protein Urine Trace (Negative); Squamous Epithelial Cell Urine 0-4 /hpf (0-5); Urine Appearance Clear (CLEAR); Urobilinogen Urine 1 mg/dL (Negative); pH Urine 5 (5-7)
[2024-01-28 19:23] LABS: Add Urine Culture? No; Amorphous Sediment Urine 1+ /hpf
[2024-01-28 19:27] LABS: Amphetamines Screen Urine Negative (Negative); Barbiturates Screen Urine Negative (Negative); Benzodiazepines Screen Urine Negative (Negative); Cocaine Screen Urine Negative (Negative); Opiate Screen Urine Negative (Negative); PCP Screen Urine Negative (Negative); THC Screen Urine Negative (Negative)
--- NOTE | 2024-01-28 19:38 | CTR_ITS ---
PROCEDURE INFORMATION: Exam: CT Abdomen And Pelvis With Contrast Exam date and time: 01/28/2024 8:07 PM Age: 33 years old Clinical indication: Abdominal pain; Localized; Left upper quadrant (luq) TECHNIQUE: Imaging protocol: Computed tomography of the abdomen and pelvis with contrast. Radiation optimization: All CT scans at this facility use at least one of these dose optimization techniques: automated exposure control; mA and/or kV adjustment per patient size (includes targeted exams where dose is matched to clinical indication); or iterative reconstruction. Contrast material: OMNI 350; Contrast volume: 100 ml; Contrast route: INTRAVENOUS (IV); COMPARISON: [place] liver [id number] 03/22/2022 2:32 PM RADIATION DOSE METRICS: Total DLP (mGy-cm): 655 FINDINGS: Lungs: Lung bases are clear. No pleural effusion. Liver: Normal. No mass. Gallbladder and bile ducts: Normal. No calcified stones. No ductal dilation. Pancreas: Normal. No ductal dilation. Spleen: Normal. No splenomegaly. Adrenal glands: Normal. No mass. Kidneys and ureters: Normal. No hydronephrosis. Stomach and bowel: Unremarkable. No obstruction. No mucosal thickening. Appendix: No evidence of appendicitis. Intraperitoneal space: Unremarkable. No free air. No significant fluid collection. Vasculature: Unremarkable. No abdominal aortic aneurysm. Lymph nodes: Unremarkable. No enlarged lymph nodes. Urinary bladder: Unremarkable as visualized. Reproductive: Unremarkable as visualized. Bones/joints: Unremarkable. No acute fracture. Soft tissues: Unremarkable. CT/CT abdomen pelvis w con* [id number] IMPRESSION: No acute findings.
[2024-01-28 19:39] VITALS: RESP 18; O2SAT 98
[2024-01-28 20:07] LABS: Lactic Sepsis W/Reflex 1.2 mmol/L (0.5-2.2)
[2024-01-28] MEDS: iohexol 350 mg/mL 500 mL Btl (per mL) IV (20:09)
[2024-01-28 20:36] VITALS: RESP 18
[2024-01-28 21:32] VITALS: BP 164/89; PULSE 77; RESP 18; O2SAT 99
[2024-01-28] MEDS: HYDROcodone-acetaminophen 10-325 mg Tablet 1 TAB PO (21:34)
[2024-01-28] MEDS: methylPREDNISolone sod succ 125 mg/2 mL INJ IVP (21:34)
== END 2024-01-28 21:34 | disposition home or self-care (01) ==
PROVIDERS: Emergency Provider Emergency Medicine
DX: R10.12 Left upper quadrant pain (principal); F17.290 Nicotine dependence, other tobacco product, uncomplicated; F17.210 Nicotine dependence, cigarettes, uncomplicated; Z86.19 Personal history of other infectious and parasitic diseases
CPT/HCPCS: 36415; 74177; 80053; 80306; 81001; 81025; 83605; 83690; 85025; 86140; 96374; 99285; J2919; Q9967

== ENCOUNTER 2025-04-19 04:31 | Emergency (ER) | payer BC, MEDICAID, SELFPAY ==
[2025-04-19 04:33] VITALS: BP 157/122; PULSE 85; RESP 16; TEMP 36.8; O2SAT 99; BMI 27.4
--- OUTSIDE RECORDS SUMMARY | 2025-04-19 04:55 | XMS_ITS | Clinical Summary ---
Author Organization [facility] Address [address] [place] [address] Phone Care Team Providers Care Proofer Prepress Name Role Phone Noreen Cruz MD Primary Care Provider [phone] Allergies No known active allergies Medications pantoprazole (Protonix) 40 mg Tablet, Delayed Release (E.C.) Take 1 Tablet (40 mg) by mouth daily. 30 Tablet 01/24/2024 Active LORazepam (ATIVAN) 0.5 mg tablet Take 0.5 mg by mouth 2 times daily. Active buprenorphine HCL (SUBUTEX) 8 mg Tablet, Sublingual Place 8 mg under tongue every 6 hours. Once dissolved, rinse mouth with water & swallow. Wait at least 1 hour before brushing teeth. Active Encounters Date Type Department Care Team Description 01/20/2025 External Device Data [facility] ABSTRACTION Provider, Abstract from Last 3 Months Social History Tobacco Use Types Packs/Day Years Used Date Smoking Tobacco: Former Cigarettes Smokeless Tobacco: Never Tobacco Cessation:Counseling Given: Not Answered Alcohol Use Standard Drinks/Week Comments Yes 0 (1 standard drink = 0.6 oz pur e alcohol) occasionally Feeling Safe Answer Date Recorded Are you in a relationship wi th someone who hurts you emotionally and/or physically? No 09/10/2024 Comments No Sex and Gender Information Value Date Recorded Sex Assigned at Not on file Legal Sex Female 5:11 PM FLORAL DESIGNER Gender Identity Not on file Sexual Orientation Not on file Last Filed Vital Signs Vital Sign Reading Time Taken Comments Blood Pressure 129/68 09/10/2024 8:00 PM FLORAL DESIGNER Pulse 89 09/10/2024 8:00 PM FLORAL DESIGNER Temperature 36.4 C (97.5 F) 09/10/2024 7:35 PM FLORAL DESIGNER Respiratory Rate 18 09/10/2024 8:00 PM FLORAL DESIGNER Oxygen Saturation 99% 09/10/2024 8:00 PM FLORAL DESIGNER Inhaled Oxygen Concentration - - Weight 77.8 kg (171 lb 9.6 oz) 09/10/2024 7:35 P M FLORAL DESIGNER Height 157.5 cm (5' 2 ) 09/10/2024 7:35 PM FLORAL DESIGNER Body Mass Index 31.39 09/10/2024 7:35 PM FLORAL DESIGNER Plan of Treatment Health Maintenance Due Date Last Done Comments Pre-Diabetes and Diabetes Screening 1988 DTAP/TDAP/TD VACCINES (1 - Tdap) 2007 HEPATITIS B VACCINES (1 of 3 - 19+ 3-dose series) 05/20 HPV/Cotest (21-29) 2009 HPV VACCINES (1 - 3-dose SCDM series) 2015 CERVICAL CANCER SCREENING 2018 HPV/Cotest (30-65) 2018 PAP SMEAR 2018 INFLUENZA VACCINE (#1) [address] [place] [address] [place] [address] [place]ICA[place] Care Teams Proofer Prepress Relationship Specialty Start Date End Date Noreen Cruz MD [address] [place] [id number] PCP - General Family Practice 08/23/23
--- OUTSIDE RECORDS SUMMARY | 2025-04-19 04:55 | XMS_ITS | Encounter Summary ---
Author Organization [facility] Address [address] [place] [address] Care Team Providers Care Business Development Consultant Name Role Phone Noreen Cruz MD Primary Care Provider [phone] Encounter Details Date Type Department Care Team (Late st Contact Info) Description 09/12/2024 Results Follow-Up [facility] Emergency Medicine [address] [place] [id number] Magi Renteria, RN GC/CHLAMYDIA, UROGENITAL, URINE CULTURE Social History Tobacco Use Types Packs/Day Years Used Date Smoking Tobacco: Former Cigarettes Smokeless Tobacco: Never Alcohol Use Standard Drinks/Week Comments Yes 0 (1 standard drink = 0.6 oz pur e alcohol) occasionally Feeling Safe Answer Date Recorded Are you in a relationship wi th someone who hurts you emotionally and/or physically? No 09/10/2024 Comments No Sex and Gender Information Value Date Recorded Sex Assigned at Not on file Legal Sex Female 5:11 PM TECHNICAL SUPPORT CONSULTANT Gender Identity Not on file Sexual Orientation Not on file documented as of this encounter Plan of Treatment Not on file documented as of this encounter Visit Diagnoses Not on filedocumented in this encounter Care Teams Business Development Consultant Relationship Specialty Start Date End Date Noreen Cruz MD [address] [place] [id number] PCP - General Family Practice 08/23/23 documented as of this encounter
--- NOTE | 2025-04-19 05:02 | ED_ITS ---
Documented by User: Jaden Mohr, DO 04/19/25 18:42 HPI - Back Pain/Injury 2 General: Chief Complaint: Back Pain/Injury Stated Complaint: BACK PAIN Time Seen by Provider: 04/19/25 04:36 History of Present Illness: 34-year-old female presenting with multi ple complaints this morning including left-sided flank pain, chest discomfort, vomiting, right sided neck pain, and all my organs shutting down . She complains of this over the last 3 days or so. Worsening symptoms at home. She has tried medication at home including Suboxone, which she says she took this morning but had not taken previously in several days. She has had some diarrhea, but she took medication for constipation so she expected to have some diarrhea. She believes she has had a fever. She says her heart has been pounding. She denies change in her urine. She denies vaginal discharge. She denies vaginal bleeding. She says that she has had a pint of alcohol in the last couple of days trying to dull the pain, but it has not worked. Related Data Home Medications ?Medication ?Instructions ?Recorded ?Confirmed buprenorphine HCl 8 mg sublingual 8 mg sublingual KATARINA Y 11/23/22 04/17/24 tablet Previous Rx's ?Medication ?Instructions ?Recorded [id number]-[id number]-[id number] 250 2 tab PO Q6H PRN pa in #90 tabs 02/16/22 mg-250 mg-65 mg tablet (Excedrin Extra Strength) meloxicam 7.5 mg tablet 7.5 mg PO BID PRN pain #14 t abs 01/24/23 mupirocin 2 % topical ointment 1 applic topical BID #1 5 grams 03/29/23 rizatriptan 10 mg disintegrating See Rx Instructions P O .COMPLEX 04/17/23 tablet (Maxalt-TECHNICAL ACCOUNT MANAGER) #14 tabs baclofen 10 mg tablet 5 mg (1/2 x 10 mg) PO TID WV N 04/25/23 headache #30 tabs hydroxyzine pamoate 25 mg capsule 25 mg PO TID PRN hea dache #30 caps 04/25/23 (Vistaril) diclofenac sodium 50 mg 50 mg PO Q12H #20 tabs 01/27 tablet,delayed release hydrochlorothiazide 25 mg tablet 25 mg PO QAM #30 tabs 03/07/24 ibuprofen 800 mg tablet 800 mg PO TID PRN pain #60 t abs 03/07/24 levetiracetam 500 mg tablet 500 mg PO BID #60 tabs (Keppra) lorazepam 0.5 mg tablet (Ativan) 0.5 mg PO BID PRN anx iety #60 tabs 04/17/24 Allergies Allergy/AdvReac Type Severity Reaction Status Date / Time No Known Allergies Allergy Verified 04/19/25 04:38 Review of Systems 2 Narrative: Constitutional: Reports inability to get out of bed, significant pain. HEENT: Reports throat pain. Respiratory: Positive for cough, described as 'a lot.' Cardiovascular: Reports chest pain. Gastrointestinal: Positive for vomiting, constipation followed by diarrhea after taking laxative, abdominal pain. Genitourinary: Reports pain 'down there' but denies pain with urination. Denies vaginal bleeding or discharge. Musculoskeletal: Reports difficulty walking due to pain. Although she walked without assistance to the bathroom with a normal gait Neurological: Alert and oriented, able to communicate. Psychiatric: Appears distressed. PFSH ED 2 PFSH: Medical History Murmur, heart Methamphetamine abuse in remission remission since 2020. No pertinent past medical history neghx: htn,dm,thyroid,dvt/pe PCP: Jana David Hepatitis C (~2021) took the medication for treatment; needs to be retested-- will see Mihaela Renee Chronic neck pain Surgical History Hx of section 2004 2006 H/O tubal ligation (~2006) Family History Denies family history of Colon cancer Ovarian cancer Diabetes Heart disease Hyperlipidemia Breast cancer Hypertension Uterine cancer Thyroid disease Stroke Social History Smoking and tobacco/nicotine status: never used tobacco/nicotine Second hand smoke exposure: No Alcohol intake: never Substance/Drug Use: never Female Reproductive History: Date of last menstrual period: 03/19/25 Para: 2 Physical Exam 2 Const: COMMON NORMALS: no acute distress GENERAL APPEARANCE: cooperative; not ill appearing and not frail appearing HENMT: COMMON NORMALS: normocephalic, atraumatic and Normal external nose present HEAD & SCALP: normocephalic and atraumatic FACE & SINUS: normal facial exam and face symmetric NOSE: Normal external nose present Eye: COMMON NORMALS: Equal, round and reactive pupils present and EOMs intact bilaterally PUPIL: Yes Equal, round and reactive pupils present Neck/C-Spine: GENERAL: Yes trachea midline Chest: CHEST: Yes Symmetrical chest wall rise Resp: COMMON NORMALS: normal respiratory effort, No retractions, No use of accessory muscles and clear to auscultation bilaterally AUSCULTATION: clear to auscultation bilaterally Cardio: COMMON NORMALS: regular rate and regular rhythm RATE: regular rate RHYTHM: regular rhythm GI: COMMON NORMALS: Normal to inspection, nondistended, normoactive bowel sounds present Extremity: COMMON NORMALS: no pedal edema Neuro: FAMILIA COMA SCALE: document GCS findings [place] coma scale eye opening: Spontaneous [place] coma scale verbal response: Orientated Fam[place] coma scale motor response: Obey commands Fam[place] coma scale total score: 15 S ENSORY EXAM: Yes extremities (intact) Psych: COMMON NORMALS: speech normal SPEECH: Yes normal speech Skin: COMMON NORMALS: no rashes or lesions noted GENERAL SKIN EXAM: no rashes or lesions noted Course 2 Vital Signs: Vital signs: Vital Signs Temperature 98.3 F 04/19/25 04:33 Pulse Rate 85 04/19/25 07:55 Respiratory Rate 16 04/19/25 04:33 Blood Pressure 126/94 04/19/25 07:55 Pulse Oximetry 97 04/19/25 07:55 Oxygen Delivery Me thod Room Air 04/19/25 04:33 MDM - Back Pain/Injury Medical Decision Making This patient has multiple seemingly nonrelated complaints. Suspect withdrawal syndrome in this patient. She is given Toradol and Haldol for pain and nausea with agitation and anxiety. Patient was hypertensive on arrival. Currently 138/91. Other vitals are stable. She is oxygenating on room air. CBC is normal. She is not . Other laboratories pending. She be checked out to the oncoming physician. Interestingly it appears she smoked a cigarette in the ER bathroom. Patient presents here with back pain along with some nausea she is well- appearing here blood works normal besides elevated alcohol she stable for discharge follow-up PCP return if worsening Labs 04/19/25 05:15 04/19/25 05:15 Laboratory Results WBC 6.79 10^3/uL (3.29-11.43) 04/19/25 05:15 RBC 4.45 10^6/uL (3.85-5.65) 04/19/25 05:15 Hgb 13.90 g/dL (11.27-16.99) 04/19/25 05:15 Hct 40.1 % (36-47) 04/19/25 05:15 MCV 90.1 fl (85-98) 04/19/25 05:15 MCH 31.2 pg (27-33) 04/19/25 05:15 MCHC 34.7 g/dL (30-55) 04/19/25 05:15 RDW 12.6 % (12.1-15.1) 04/19/25 05:15 Plt Count 300 10^3/cmm (157-399) 04/19/25 05:15 MPV 9.2 fL (7.4-10.4) 04/19/25 05:15 Neut % (Auto) 52.2 % 04/19/25 05:15 Lymph % (Auto) 37.0 % 04/19/25 05:15 Foard % (Auto) 7.7 % 04/19/25 05:15 Eos % (Auto) 2.5 % 04/19/25 05:15 Baso % (Auto) 0.3 % 04/19/25 05:15 Neut # (Auto) 3.55 10^3/uL (1.8-7.7) 04/19/25 05:15 Lymph # (Auto) 2.5 10^3/uL (0.8-4.8) 04/19/25 05:15 Foard # (Auto) 0.5 10^3/uL (0.2-0.9) 04/19/25 05:15 Eos # (Auto) 0.2 10^3/uL (0.0-0.8) 04/19/25 05:15 Baso # (Auto) 0.0 10^3/uL (0.0-0.1) 04/19/25 05:15 Nucleated RBC % (auto) 0 % 04/19/25 05:15 Nucleated RBCs # 0.0 /100WBC 04/19/25 05:15 Sodium 146 mmol/L (136-145) H 04/19/25 05:15 Potassium 3.3 mmol/L (3.5-5.1) L 04/19/25 05:15 Chloride 110 mmol/L (98-107) H 04/19/25 05:15 Carbon Dioxide 21 mmol/L (22-29) L 04/19/25 05:15 Anion Gap 18.3 (5-19) 04/19/25 05:15 BUN 9 mg/dL (6-20) 04/19/25 05:15 Creatinine 0.6 mg/dL (0.5-0.9) 04/19/25 05:15 GFR Calculation 113.1 mL/min (90-130) 04/19/25 05:15 Glucose 123 mg/dL (65-115) H 04/19/25 05:15 Calculated Osmolality 302 mOsm/kg (285-295) H 04/19/25 05:15 Calcium 8.9 mg/dL (8.5-10.5) 04/19/25 05:15 Total Bilirubin 0.2 mg/dL (0.15-1.2) 04/19/25 05:15 AST 18 U/L (0-32) 04/19/25 05:15 ALT 13 U/L (0-33) 04/19/25 05:15 Alkaline Phosphatase 54 U/L (35-105) 04/19/25 05:15 C-Reactive Protein 3.0 mg/L (0.0-4.9) 04/19/25 05:15 Total Protein 7.4 g/dL (6.6-8.7) 04/19/25 05:15 Albumin 4.4 g/dL (3.5-5.2) 04/19/25 05:15 Globulin 3.0 g/dL (1.3-4.6) 04/19/25 05:15 Lipase 37 U/L (13-60) 04/19/25 05:15 HCG, Qual Negative (Negative) 04/19/25 05:15 Urine Color Yellow (Yellow) 04/19/25 07:05 Urine Appearance Cloudy (CLEAR) A 04/19/25 07:05 Urine pH 7.0 (5-7) 04/19/25 07:05 Ur Specific [place] 1.021 (1.005-1.030) 04/19/25 07:05 Urine Protein Trace (Negative) A 04/19/25 07:05 Urine Glucose (UA) Negative (Normal) 04/19/25 07:05 Urine Ketones Trace (Negative) 04/19/25 07:05 Urine Blood Negative (Negative) 04/19/25 07:05 Urine Nitrate Negative (Negative) 04/19/25 07:05 Urine Bilirubin Negative (Negative) 04/19/25 07:05 Urine Urobilinogen 1.0 mg/dL (Negative) 04/19/25 07:05 Ur Leukocyte Esterase Negative (Negative) 04/19/25 07:05 Urine RBC 6-10 /hpf (0-2) 04/19/25 07:05 Urine WBC 0-5 /hpf (0-5) 04/19/25 07:05 Ur Squamous Epith Cells 0-5 /hpf (0-5) 04/19/25 07:05 Calcium Oxalate Crystal 25-40 /hpf H 04/19/25 07:05 Amorphous Sediment Not Reportable 04/19/25 07:05 Urine Bacteria None seen /hpf (NONE) 04/19/25 07:05 Hyaline Casts 2.05 /lpf 04/19/25 07:05 Urine Opiates Screen Negative ng/mL (Negative) 04/19/25 07:05 Ur Barbiturates Screen Negative ng/mL (Negative) 04/19/25 07:05 Ur Phencyclidine Scrn Negative ng/mL (Negative) 04/19/25 07:05 Ur Amphetamines Screen Negative ng/mL (Negative) 04/19/25 07:05 U Benzodiazepines Scrn Negative ng/mL (Negative) 04/19/25 07:05 Urine Cocaine Screen Negative ng/mL (Negative) 04/19/25 07:05 U Marijuana (THC) Screen Positive ng/mL (Negative) H 04/19/25 07:05 Ethyl Alcohol 243 mg/dL (0-10) H 04/19/25 05:15 Discharge Plan Discharge Patient Disposition: Home Clinical Impression: Back pain, Alcohol intoxication Condition: Stable Prescriptions: No Action buprenorphine HCl 8 mg tablet, sublingual 8 mg sublingual DAILY mupirocin 2 % ointment 1 applic topical BID Qty: 15 0RF rizatriptan [Maxalt-TECHNICAL ACCOUNT MANAGER] 10 mg tablet,disintegrating See Rx Instructions PO .COMPLEX Qty: 14 3RF Rx Instructions: take 1 tab at onset of headache; if no relief may repeat 1 tab after at least 2 hrs; max = 3 tabs/24 hr PO levetiracetam [Keppra] 500 mg tablet 500 mg PO BID Qty: 60 3RF lorazepam [Ativan] 0.5 mg tablet 0.5 mg PO BID PRN (Reason: anxiety) Qty: 60 2RF Excedrin Extra Strength 250-250-65 mg tablet 2 tab PO Q6H PRN (Reason: pain) Qty: 90 5RF ibuprofen 800 mg tablet 800 mg PO TID PRN (Reason: pain) Qty: 60 0RF hydrochlorothiazide 25 mg tablet 25 mg PO QAM Qty: 30 0RF hydroxyzine pamoate [Vistaril] 25 mg capsule 25 mg PO TID PRN (Reason: headache) Qty: 30 0RF Rx Instructions: Take one with baclofen for migraine pain. baclofen 10 mg tablet 5 mg PO TID PRN (Reason: headache) Qty: 30 0RF Rx Instructions: Take with hydroxyzine for headache pain meloxicam 7.5 mg tablet 7.5 mg PO BID PRN (Reason: pain) Qty: 14 0RF diclofenac sodium 50 mg tablet,delayed release (DR/EC) 50 mg PO Q12H Qty: 20 0RF Discharge Orders: Discharge ED (Routine); Ordered 04/19/25 Ordered By: Mena Membreno Referrals: Jose Donald MD [Primary Care Provider, Family Practice] - 4-7 days Discharge Diet: Advance as tolerated Discharge Activity: Resume usual activity Patient Instructions: Back Pain (ED) Print Language: New Zealander Coding Level of Care Code ED Call Center Rn for Chg Fwd Documented by User: Mena Membreno MD 04/19/25 07:45 HPI - Back Pain/Injury 2 General: Chief Complaint: Back Pain/Injury Stated Complaint: BACK PAIN Time Seen by Provider: 04/19/25 04:36 Related Data Home Medications ?Medication ?Instructions ?Recorded ?Confirmed buprenorphine HCl 8 mg sublingual 8 mg sublingual KATARINA Y 11/23/22 04/17/24 tablet Previous Rx's ?Medication ?Instructions ?Recorded alyljrc-dcvhsunscqlqy-ooujaimy 250 2 tab PO Q6H PRN pa in #90 tabs 02/16/22 mg-250 mg-65 mg tablet (Excedrin Extra Strength) meloxicam 7.5 mg tablet 7.5 mg PO BID PRN pain #14 t abs 01/24/23 mupirocin 2 % topical ointment 1 applic topical BID #1 5 grams 03/29/23 rizatriptan 10 mg disintegrating See Rx Instructions P O .COMPLEX 04/17/23 tablet (Maxalt-TECHNICAL ACCOUNT MANAGER) #14 tabs baclofen 10 mg tablet 5 mg (1/2 x 10 mg) PO TID WV N 04/25/23 headache #30 tabs hydroxyzine pamoate 25 mg capsule 25 mg PO TID PRN hea dache #30 caps 04/25/23 (Vistaril) diclofenac sodium 50 mg 50 mg PO Q12H #20 tabs 01/27 tablet,delayed release hydrochlorothiazide 25 mg tablet 25 mg PO QAM #30 tabs 03/07/24 ibuprofen 800 mg tablet 800 mg PO TID PRN pain #60 t abs 03/07/24 levetiracetam 500 mg tablet 500 mg PO BID #60 tabs (Keppra) lorazepam 0.5 mg tablet (Ativan) 0.5 mg PO BID PRN anx iety #60 tabs 04/17/24 Allergies Allergy/AdvReac Type Severity Reaction Status Date / Time No Known Allergies Allergy Verified 04/19/25 04:38 PFSH ED 2 PFSH: Medical History Murmur, heart Methamphetamine abuse in remission remission since 2020. No pertinent past medical history neghx: htn,dm,thyroid,dvt/pe PCP: Jana David Hepatitis C (~2021) took the medication for treatment; needs to be retested-- will see Mihaela Renee Chronic neck pain Surgical History Hx of section 2004 2006 H/O tubal ligation (~2006) Family History Denies family history of Colon cancer Ovarian cancer Diabetes Heart disease Hyperlipidemia Breast cancer Hypertension Uterine cancer Thyroid disease Stroke Social History Smoking and tobacco/nicotine status: never used tobacco/nicotine Second hand smoke exposure: No Alcohol intake: never Substance/Drug Use: never Physical Exam 2 Neuro: FAMILIA COMA SCALE: document GCS findings [place] coma scale total score: 15 Course 2 Vital Signs: Vital signs: Vital Signs Temperature 98.3 F 04/19/25 04:33 Pulse Rate 85 04/19/25 07:55 Respiratory Rate 16 04/19/25 04:33 Blood Pressure 126/94 04/19/25 07:55 Pulse Oximetry 97 04/19/25 07:55 Oxygen Delivery Me thod Room Air 04/19/25 04:33 MDM - Back Pain/Injury Medical Decision Making This patient has multiple seemingly nonrelated complaints. Suspect withdrawal syndrome in this patient. She is given Toradol and Haldol for pain and nausea with agitation and anxiety. Patient was hypertensive on arrival. Currently 138/91. Other vitals are stable. She is oxygenating on room air. CBC is normal. She is not . Other laboratories pending. She be checked out to the oncoming physician. Interestingly it appears she smoked a cigarette in the ER bathroom. Patient presents here with back pain along with some nausea she is well- appearing here blood works normal no signs of elevated alcohol she stable for discharge follow-up PCP return if worsening Medical Records I reviewed the patient's medical records. Labs I reviewed the patient's lab results. 04/19/25 05:15 04/19/25 05:15 Laboratory Results WBC 6.79 10^3/uL (3.29-11.43) 04/19/25 05:15 RBC 4.45 10^6/uL (3.85-5.65) 04/19/25 05:15 Hgb 13.90 g/dL (11.27-16.99) 04/19/25 05:15 Hct 40.1 % (36-47) 04/19/25 05:15 MCV 90.1 fl (85-98) 04/19/25 05:15 MCH 31.2 pg (27-33) 04/19/25 05:15 MCHC 34.7 g/dL (30-55) 04/19/25 05:15 RDW 12.6 % (12.1-15.1) 04/19/25 05:15 Plt Count 300 10^3/cmm (157-399) 04/19/25 05:15 MPV 9.2 fL (7.4-10.4) 04/19/25 05:15 Neut % (Auto) 52.2 % 04/19/25 05:15 Lymph % (Auto) 37.0 % 04/19/25 05:15 Foard % (Auto) 7.7 % 04/19/25 05:15 Eos % (Auto) 2.5 % 04/19/25 05:15 Baso % (Auto) 0.3 % 04/19/25 05:15 Neut # (Auto) 3.55 10^3/uL (1.8-7.7) 04/19/25 05:15 Lymph # (Auto) 2.5 10^3/uL (0.8-4.8) 04/19/25 05:15 Foard # (Auto) 0.5 10^3/uL (0.2-0.9) 04/19/25 05:15 Eos # (Auto) 0.2 10^3/uL (0.0-0.8) 04/19/25 05:15 Baso # (Auto) 0.0 10^3/uL (0.0-0.1) 04/19/25 05:15 Nucleated RBC % (auto) 0 % 04/19/25 05:15 Nucleated RBCs # 0.0 /100WBC 04/19/25 05:15 Sodium 146 mmol/L (136-145) H 04/19/25 05:15 Potassium 3.3 mmol/L (3.5-5.1) L 04/19/25 05:15 Chloride 110 mmol/L (98-107) H 04/19/25 05:15 Carbon Dioxide 21 mmol/L (22-29) L 04/19/25 05:15 Anion Gap 18.3 (5-19) 04/19/25 05:15 BUN 9 mg/dL (6-20) 04/19/25 05:15 Creatinine 0.6 mg/dL (0.5-0.9) 04/19/25 05:15 GFR Calculation 113.1 mL/min (90-130) 04/19/25 05:15 Glucose 123 mg/dL (65-115) H 04/19/25 05:15 Calculated Osmolality 302 mOsm/kg (285-295) H 04/19/25 05:15 Calcium 8.9 mg/dL (8.5-10.5) 04/19/25 05:15 Total Bilirubin 0.2 mg/dL (0.15-1.2) 04/19/25 05:15 AST 18 U/L (0-32) 04/19/25 05:15 ALT 13 U/L (0-33) 04/19/25 05:15 Alkaline Phosphatase 54 U/L (35-105) 04/19/25 05:15 C-Reactive Protein 3.0 mg/L (0.0-4.9) 04/19/25 05:15 Total Protein 7.4 g/dL (6.6-8.7) 04/19/25 05:15 Albumin 4.4 g/dL (3.5-5.2) 04/19/25 05:15 Globulin 3.0 g/dL (1.3-4.6) 04/19/25 05:15 Lipase 37 U/L (13-60) 04/19/25 05:15 HCG, Qual Negative (Negative) 04/19/25 05:15 Urine Color Yellow (Yellow) 04/19/25 07:05 Urine Appearance Cloudy (CLEAR) A 04/19/25 07:05 Urine pH 7.0 (5-7) 04/19/25 07:05 Ur Specific [place] 1.021 (1.005-1.030) 04/19/25 07:05 Urine Protein Trace (Negative) A 04/19/25 07:05 Urine Glucose (UA) Negative (Normal) 04/19/25 07:05 Urine Ketones Trace (Negative) 04/19/25 07:05 Urine Blood Negative (Negative) 04/19/25 07:05 Urine Nitrate Negative (Negative) 04/19/25 07:05 Urine Bilirubin Negative (Negative) 04/19/25 07:05 Urine Urobilinogen 1.0 mg/dL (Negative) 04/19/25 07:05 Ur Leukocyte Esterase Negative (Negative) 04/19/25 07:05 Urine RBC 6-10 /hpf (0-2) 04/19/25 07:05 Urine WBC 0-5 /hpf (0-5) 04/19/25 07:05 Ur Squamous Epith Cells 0-5 /hpf (0-5) 04/19/25 07:05 Calcium Oxalate Crystal 25-40 /hpf H 04/19/25 07:05 Amorphous Sediment Not Reportable 04/19/25 07:05 Urine Bacteria None seen /hpf (NONE) 04/19/25 07:05 Hyaline Casts 2.05 /lpf 04/19/25 07:05 Urine Opiates Screen Negative ng/mL (Negative) 04/19/25 07:05 Ur Barbiturates Screen Negative ng/mL (Negative) 04/19/25 07:05 Ur Phencyclidine Scrn Negative ng/mL (Negative) 04/19/25 07:05 Ur Amphetamines Screen Negative ng/mL (Negative) 04/19/25 07:05 U Benzodiazepines Scrn Negative ng/mL (Negative) 04/19/25 07:05 Urine Cocaine Screen Negative ng/mL (Negative) 04/19/25 07:05 U Marijuana (THC) Screen Positive ng/mL (Negative) H 04/19/25 07:05 Ethyl Alcohol 243 mg/dL (0-10) H 04/19/25 05:15 All radiology interpretation(s) finalized by discharge Discharge Plan Discharge Patient Disposition: Home Clinical Impression: Back pain, Alcohol intoxication Condition: Stable Prescriptions: No Action buprenorphine HCl 8 mg tablet, sublingual 8 mg sublingual DAILY mupirocin 2 % ointment 1 applic topical BID Qty: 15 0RF rizatriptan [Maxalt-TECHNICAL ACCOUNT MANAGER] 10 mg tablet,disintegrating See Rx Instructions PO .COMPLEX Qty: 14 3RF Rx Instructions: take 1 tab at onset of headache; if no relief may repeat 1 tab after at least 2 hrs; max = 3 tabs/24 hr PO levetiracetam [Keppra] 500 mg tablet 500 mg PO BID Qty: 60 3RF lorazepam [Ativan] 0.5 mg tablet 0.5 mg PO BID PRN (Reason: anxiety) Qty: 60 2RF Excedrin Extra Strength 250-250-65 mg tablet 2 tab PO Q6H PRN (Reason: pain) Qty: 90 5RF ibuprofen 800 mg tablet 800 mg PO TID PRN (Reason: pain) Qty: 60 0RF hydrochlorothiazide 25 mg tablet 25 mg PO QAM Qty: 30 0RF hydroxyzine pamoate [Vistaril] 25 mg capsule 25 mg PO TID PRN (Reason: headache) Qty: 30 0RF Rx Instructions: Take one with baclofen for migraine pain. baclofen 10 mg tablet 5 mg PO TID PRN (Reason: headache) Qty: 30 0RF Rx Instructions: Take with hydroxyzine for headache pain meloxicam 7.5 mg tablet 7.5 mg PO BID PRN (Reason: pain) Qty: 14 0RF diclofenac sodium 50 mg tablet,delayed release (DR/EC) 50 mg PO Q12H Qty: 20 0RF Discharge Orders: Discharge ED (Routine); Ordered 04/19/25 Ordered By: Mena Membreno Referrals: Jose Donald MD [Primary Care Provider, Family Practice] - 4-7 days Discharge Diet: Advance as tolerated Discharge Activity: Resume usual activity Patient Instructions: Back Pain (ED) Print Language: New Zealander Coding Level of Care Code ED Call Center Rn for Brock Lopez
[2025-04-19 05:30] LABS: Hematocrit 40.1 % (36-47); Hemoglobin 13.90 g/dL (11.27-16.99); Mean Corpuscular HGB Conc 34.7 g/dL (30-55); Mean Corpuscular Hemoglobin 31.2 pg (27-33); Mean Corpuscular Volume 90.1 fl (85-98); Nucleated Red Blood Cells % 0 %; Platelet Count 300 10^3/cmm (157-399); Red Blood Count 4.45 10^6/uL (3.85-5.65); White Blood Count 6.79 10^3/uL (3.29-11.43)
[2025-04-19 05:51] LABS: HCG, Serum Qual Negative (Negative)
[2025-04-19 06:18] LABS: Alanine Aminotransferase 13 U/L (0-33); Albumin Level 4.4 g/dL (3.5-5.2); Alcohol Level 243 mg/dL (0-10); Alkaline Phosphatase 54 U/L (35-105); Anion Gap 18.3 (5-19); Aspartate Amino Transferase 18 U/L (0-32); Blood Urea Nitrogen 9 mg/dL (6-20); Calcium 8.9 mg/dL (8.5-10.5); Carbon Dioxide 21 mmol/L (22-29); Chloride 110 mmol/L (98-107); Creatinine Clr Calc Pharmacy 117.2028; Globulin 3.0 g/dL (1.3-4.6); Glucose 123 mg/dL (65-115); Lipase 37 U/L (13-60); Osmolality Calculated 302 mOsm/kg (285-295); Potassium 3.3 mmol/L (3.5-5.1); Sodium 146 mmol/L (136-145); Total Protein 7.4 g/dL (6.6-8.7)
[2025-04-19] MEDS: haloperidol inj 5 mg/mL INJ 1 mL IVP (06:48)
[2025-04-19 07:22] LABS: PCP Screen Urine Negative (Negative)
[2025-04-19 07:34] LABS: Glucose Urine UA Negative (Normal); Nitrate Urine Negative (Negative); Specific Gravity, Urine 1.021 (1.005-1.030)
[2025-04-19 07:36] LABS: Add Urine Microscopic? YES
[2025-04-19 07:43] LABS: UA Slide Review UA Slide Review Perf
[2025-04-19 07:55] VITALS: BP 126/94; PULSE 85; O2SAT 97
== END 2025-04-19 07:56 | disposition home or self-care (01) ==
PROVIDERS: Emergency Medicine; Emergency Provider Emergency Medicine; PCP Family Medicine
DX: M54.9 Dorsalgia, unspecified (principal); F10.129 Alcohol abuse with intoxication, unspecified; Y90.8 Blood alcohol level of 240 mg/100 ml or more
CPT/HCPCS: 80053; 80306; 80307; 81001; 83690; 84703; 85025; 86140; 96374; 96375; 99284; J1630; J1885; J7030

== ENCOUNTER 2025-04-24 01:53 | Emergency (ER) | payer MEDICAID, SELFPAY ==
--- NOTE | 2025-04-24 01:58 | XRR_ITS ---
PROCEDURE INFORMATION: Exam: XR Chest Exam date and time: 04/24/2025 2:01 AM Age: 34 years old Clinical indication: Apnea and shortness of breath; PT states she was previously diagnosed with a heart murmur; Additional info: Dyspnea/cough TECHNIQUE: Imaging protocol: Radiologic exam of the chest. Views: 1 view. COMPARISON: CT abdomen pelvis w con* [id number] 01/28/2024 8:07 PM FINDINGS: Lungs: No confluent consolidation. Pleural spaces: No pleural effusion. No pneumothorax is seen. Heart/Mediastinum: The heart is normal in size. Mediastinal contours are within normal limits. Bones/joints: No lytic or blastic lesions. No acute osseous abnormality. Intraperitoneal space: No free air is seen under the diaphragm. XR/XR chest 1V portable [id number] IMPRESSION: No acute cardiopulmonary process.
[2025-04-24 02:00] VITALS: BP 139/108; PULSE 108; RESP 23; TEMP 36.6; O2SAT 96; BMI 23.0
--- OUTSIDE RECORDS SUMMARY | 2025-04-24 02:01 | XMS_ITS | Clinical Summary ---
Author Organization [facility] Address [address] [place] [address] Phone Care Team Providers Care Gourmet Coffee Attendant Name Role Phone Noreen Cruz MD Primary Care Provider [phone] Allergies No known active allergies Medications pantoprazole [...] least 1 hour before brushing teeth. Active Social History Tobacco Use Types Packs/Day Years [...] on file Legal Sex Female 5:11 PM CASK MAKER Gender Identity Not on file Sexual Orientation Not on file Last Filed Vital Signs Vital Sign Reading Time Taken Comments Blood Pressure 129/68 09/10/2024 8:00 PM CASK MAKER Pulse 89 09/10/2024 8:00 PM CASK MAKER Temperature 36.4 C (97.5 F) 09/10/2024 7:35 PM CASK MAKER Respiratory Rate 18 09/10/2024 8:00 PM CASK MAKER Oxygen Saturation 99% 09/10/2024 8:00 PM CASK MAKER Inhaled Oxygen Concentration - - Weight 77.8 kg (171 lb 9.6 oz) 09/10/2024 7:35 P M CASK MAKER Height 157.5 cm (5' 2 ) 09/10/2024 7:35 PM CASK MAKER Body Mass Index 31.39 09/10/2024 7:35 PM CASK MAKER Plan of Treatment Health Maintenance Due Date Last Done Comments Pre-Diabetes and Diabetes Screening 1990 DTAP/TDAP/TD VACCINES (1 - Tdap) 2007 HEPATITIS B VACCINES (1 of 3 - 19+ 3-dose series) 05/20 HPV/Cotest (21-29) 2009 HPV VACCINES (1 - 3-dose SCDM series) 2015 CERVICAL CANCER SCREENING 2018 HPV/Cotest (30-65) 2018 PAP SMEAR 2018 INFLUENZA VACCINE (#1) [address] [place] [address] MEDICAID Care Teams Gourmet Coffee Attendant Relationship Specialty Start Date End Date Noreen Cruz MD [address] [place] [phone] PCP - General Family Practice 08/23/23
--- OUTSIDE RECORDS SUMMARY | 2025-04-24 02:01 | XMS_ITS | Encounter Summary ---
Author Organization [facility] Address [address] [place] [address] Care Team Providers Care Vamper Name Role Phone Noreen Cruz MD Primary Care Provider [phone] Encounter Details Date Type Department Care Team (Late st Contact Info) Description 09/12/2024 Results Follow-Up [facility] Emergency Medicine [address] [place] [id number] Magi Renteria, RN GC/CHLAMYDIA, UROGENITAL, URINE CULTURE [...] on file Legal Sex Female 5:11 PM GEAR TECHNICIAN Gender Identity Not on file Sexual Orientation Not on file documented as of this encounter Plan of Treatment Not on file documented as of this encounter Visit Diagnoses Not on filedocumented in this encounter Care Teams Vamper Relationship Specialty Start Date End Date Noreen Cruz MD [address] [phone] PCP - General Family Practice 08/23/23 documented as of this encounter
--- NOTE | 2025-04-24 02:03 | ECG_ITS ---
[facility] 2025-[facility]24 Pat Name: Africa Fournier Department: Room: Gender: Female Cream Ripener: : 1990 Requested By: Corbin Sinha Order Number: [id number] Kole MD: Virgil Wyatt M.D. Measurements Intervals [place] Rate: 116 P: 57 [place]: 155 QRS: -21 QRSD: 102 T: 66 QT: 350 QTc: 488 Interpretive Statements SINUS TACHYCARDIA POSSIBLE LEFT ATRIAL ENLARGEMENT [-0.1mV P-WAVE IN V1/V2] PROBABLE LATERAL MYOCARDIAL INFARCTION , PROBABLY OLD [35 ms Q WAVE IN I/aVL/V5/V6] POSSIBLE INFERIOR MYOCARDIAL INFARCTION , PROBABLY OLD [30 ms Q WAVE IN II/aVF] No previous ECG available for comparison Electronically Signed On 04-24-2025 09:10:31 CDT by Virgil Wyatt M.D. [id number]
--- NOTE | 2025-04-24 02:10 | ED_ITS ---
HPI - Back Pain/Injury 2 General: Chief Complaint: Back Pain/Injury Stated Complaint: Chest/chest Pain Time Seen by Provider: 04/24/25 01:58 History of Present Illness: 34-year-old female who presents emergenc y room via EMS with complaints of back and chest pain. She states she feels like she has something crawling on her spine . She been seen before with similar symptoms approximately 6 days ago. No fever sweats chills no cough or shortness of breath. Patient states that when she got up in the morning she just collapses that she her heart gives out. She states her kidneys are hurting but when I ask her to show me where she is referring that pain from she refers it from the upper aspect of the SI joints. She denies any dysuria urgency or frequency she has not had any vomiting or diarrhea. She was seen on 831 of this year with similar complaint those notes were reviewed. Patient is currently having her menses. 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 baclofen 10 mg tablet 5 mg (1/2 x 10 mg) PO TID [place] N 04/25/23 headache #30 tabs hydroxyzine pamoate 25 mg capsule 25 mg PO TID PRN hea dache #30 caps 04/25/23 (Vistaril) diclofenac sodium 50 mg 50 mg PO Q12H #20 tabs 01/27 tablet,delayed release hydrochlorothiazide 25 mg tablet 25 mg PO QAM #30 tabs 03/07/24 ibuprofen 800 mg tablet 800 mg PO TID PRN pain #60 t abs 03/07/24 levetiracetam 500 mg tablet 500 mg PO BID #60 tabs (Keppra) lorazepam 0.5 mg tablet (Ativan) 0.5 mg PO BID PRN anx iety #60 tabs 04/17/24 diclofenac sodium 75 mg 75 mg PO Q12H PRN pain #20 t abs 04/24/25 tablet,delayed release Allergies Allergy/AdvReac Type Severity Reaction Status Date / Time No Known Allergies Allergy Verified 04/19/25 04:38 Review of Systems 2 Const: Denies: fever(s) or chills Card: Denies: chest pain Resp: Denies: dyspnea GI: Denies: abdominal pain : Denies: dysuria, urinary frequency or urinary urgency Musc: Reports: back pain; Denies: neck pain Skin/Breast: Denies: rash PFSH ED 2 PFSH: Medical History Murmur, heart Methamphetamine abuse in remission remission since 2020. No pertinent past medical history neghx: htn,dm,thyroid,dvt/pe PCP: Jana David Hepatitis C (~2021) took the medication for treatment; needs to be retested-- will see Mihaela Renee Chronic neck pain Surgical History Hx of section 2004 2006 H/O tubal ligation (~2006) Family History Denies family history of Colon cancer Ovarian cancer Diabetes Heart disease Hyperlipidemia Breast cancer Hypertension Uterine cancer Thyroid disease Stroke Social History Smoking and tobacco/nicotine status: never used tobacco/nicotine Second hand smoke exposure: No Alcohol intake: never Substance/Drug Use: never Female Reproductive History: Para: 2 Physical Exam 2 Const: GENERAL APPEARANCE: cooperative ORIENTATION/CONSCIOUSNESS: Yes awake, Yes oriented to person, Yes oriented to place and Yes oriented to time HENMT: COMMON NORMALS: normocephalic, atraumatic and hearing grossly normal bilaterally HEAD & SCALP: normocephalic and atraumatic Resp: COMMON NORMALS: normal respiratory effort, No retractions, No use of accessory muscles and clear to auscultation bilaterally AUSCULTATION: clear to auscultation bilaterally Cardio: COMMON NORMALS: regular rate, regular rhythm and No murmurs present (Cardio) RATE: regular rate RHYTHM: regular rhythm GI: COMMON NORMALS: Soft to palpation and No hepatosplenomegaly present A USCULTATION: Yes normoactive bowel sounds PALPATION: Yes Soft to palpation, No Tenderness to palpation present (GI), No Guarding due to palpation present (GI) and Yes No hepatosplenomegaly present Extremity: COMMON NORMALS: normal to inspection, capillary refill normal, no clubbing, cyanosis or edema, no calf tenderness and no pedal edema Neuro: SENSORIUM/ORIENTATION: Yes oriented to person, Yes oriented to place and Yes oriented to time Skin: COMMON NORMALS: no rashes or lesions noted GENERAL SKIN EXAM: no rashes or lesions noted Course 2 Vital Signs: Vital signs: Vital Signs Temperature 97.8 F 04/24/25 02:00 Pulse Rate 107 H 04/24/25 03:04 Respiratory Rate 18 04/24/25 03:04 Blood Pressure 135/112 04/24/25 03:04 Pulse Oximetry 97 04/24/25 03:04 MDM - Back Pain/Injury Medical Decision Making Patient ambulated to and from the room to the bathroom she is also pacing the room regularly. Reviewed labs with her her CBC is normal her D-dimer is normal EKG and troponin are unremarkable her chemistries do not show significant abnormality. She does have a little blood in her urine but tells me she is having her period now. D-dimer was not elevated. Beta-hCG done earlier this week was negative. CRP is not elevated. Patient is adamant that she needs a CT or an MRI emergently that will diagnose a problem reviewed with her that she has no focal neurologic deficits so a CT of the head would not really be helpful in this particular situation. She has no red flag symptoms for back pain I do not believe she has cauda equina based on her presenting symptoms and her exam. She has no history of trauma. These issues have been longstanding and chronic for the most part. With a normal white count benign abdominal exam normal urine and benign chemistries there is no expectation a CT of the abdomen would contribute significantly either. At this point do not believe she has any emergent condition present and can be referred back to outpatient setting. Encouraged her to follow-up with her primary care doctor they can do further evaluation if felt appropriate. Medical Records I reviewed the patient's medical records. Labs I reviewed the patient's lab results. 04/24/25 02:42 04/24/25 02:42 Radiology Impressions Chest X-Ray 04/24/25 01:58 IMPRESSION: No acute cardiopulmonary process. Laboratory Results WBC 7.74 10^3/uL (3.29-11.43) 04/24/25 02:42 RBC 4.24 10^6/uL (3.85-5.65) 04/24/25 02:42 Hgb 13.30 g/dL (11.27-16.99) 04/24/25 02:42 Hct 37.3 % (36-47) 04/24/25 02:42 MCV 88.0 fl (85-98) 04/24/25 02:42 MCH 31.4 pg (27-33) 04/24/25 02:42 MCHC 35.7 g/dL (30-55) 04/24/25 02:42 RDW 12.2 % (12.1-15.1) 04/24/25 02:42 Plt Count 309 10^3/cmm (157-399) 04/24/25 02:42 MPV 9.2 fL (7.4-10.4) 04/24/25 02:42 Neut % (Auto) 47.1 % 04/24/25 02:42 Lymph % (Auto) 42.0 % 04/24/25 02:42 [place] % (Auto) 7.1 % 04/24/25 02:42 Eos % (Auto) 3.4 % 04/24/25 02:42 Baso % (Auto) 0.1 % 04/24/25 02:42 Neut # (Auto) 3.65 10^3/uL (1.8-7.7) 04/24/25 02:42 Lymph # (Auto) 3.3 10^3/uL (0.8-4.8) 04/24/25 02:42 [place] # (Auto) 0.6 10^3/uL (0.2-0.9) 04/24/25 02:42 Eos # (Auto) 0.3 10^3/uL (0.0-0.8) 04/24/25 02:42 Baso # (Auto) 0.0 10^3/uL (0.0-0.1) 04/24/25 02:42 Nucleated RBC % (auto) 0 % 04/24/25 02:42 Nucleated RBCs # 0.0 /100WBC 04/24/25 02:42 D-Dimer 0.29 ug/mLFEU (0-0.59) 04/24/25 02:42 Sodium 144 mmol/L (136-145) 04/24/25 02:42 Potassium 3.8 mmol/L (3.5-5.1) 04/24/25 02:42 Chloride 108 mmol/L (98-107) H 04/24/25 02:42 Carbon Dioxide 22 mmol/L (22-29) 04/24/25 02:42 Anion Gap 17.8 (5-19) 04/24/25 02:42 BUN 13 mg/dL (6-20) 04/24/25 02:42 Creatinine 0.5 mg/dL (0.5-0.9) 04/24/25 02:42 GFR Calculation 139.6 mL/min (90-130) H 04/24/25 02:42 Glucose 109 mg/dL (65-115) 04/24/25 02:42 Calculated Osmolality 299 mOsm/kg (285-295) H 04/24/25 02:42 Calcium 8.9 mg/dL (8.5-10.5) 04/24/25 02:42 Total Bilirubin 0.2 mg/dL (0.15-1.2) 04/24/25 02:42 AST 16 U/L (0-32) 04/24/25 02:42 ALT 12 U/L (0-33) 04/24/25 02:42 Alkaline Phosphatase 61 U/L (35-105) 04/24/25 02:42 Troponin T Baseline < 6 ng/L (0-10) 04/24/25 02:42 C-Reactive Protein 3.0 mg/L (0.0-4.9) 04/24/25 02:42 Total Protein 6.7 g/dL (6.6-8.7) 04/24/25 02:42 Albumin 4.1 g/dL (3.5-5.2) 04/24/25 02:42 Globulin 2.6 g/dL (1.3-4.6) 04/24/25 02:42 Urine Color Yellow (Yellow) 04/24/25 02:43 Urine Appearance Cloudy (CLEAR) A 04/24/25 02:43 Urine pH 7.5 (5-7) 04/24/25 02:43 Ur Specific [place] 1.019 (1.005-1.030) 04/24/25 02:43 Urine Protein Trace (Negative) A 04/24/25 02:43 Urine Glucose (UA) Negative (Normal) 04/24/25 02:43 Urine Ketones Trace (Negative) 04/24/25 02:43 Urine Blood 3+ (Negative) A 04/24/25 02:43 Urine Nitrate Negative (Negative) 04/24/25 02:43 Urine Bilirubin Negative (Negative) 04/24/25 02:43 Urine Urobilinogen 1.0 mg/dL (Negative) 04/24/25 02:43 Ur Leukocyte Esterase Trace (Negative) A 04/24/25 02:43 Urine RBC 6-10 /hpf (0-2) 04/24/25 02:43 Urine WBC 0-5 /hpf (0-5) 04/24/25 02:43 Ur Squamous Epith Cells 6-10 /hpf (0-5) 04/24/25 02:43 Calcium Oxalate Crystal 5-10 /hpf H 04/24/25 02:43 Amorphous Sediment Not Reportable 04/24/25 02:43 Urine Bacteria None seen /hpf (NONE) 04/24/25 02:43 Hyaline Casts 2.87 /lpf 04/24/25 02:43 Urine Opiates Screen Negative ng/mL (Negative) 04/24/25 02:43 Ur Barbiturates Screen Negative ng/mL (Negative) 04/24/25 02:43 Ur Phencyclidine Scrn Negative ng/mL (Negative) 04/24/25 02:43 Ur Amphetamines Screen Negative ng/mL (Negative) 04/24/25 02:43 U Benzodiazepines Scrn Negative ng/mL (Negative) 04/24/25 02:43 Urine Cocaine Screen Negative ng/mL (Negative) 04/24/25 02:43 U Marijuana (THC) Screen Positive ng/mL (Negative) H 04/24/25 02:43 Ethyl Alcohol 201 mg/dL (0-10) H 04/24/25 02:42 All radiology interpretation(s) finalized by discharge EKG Data EKG 1: Interpretation: 04/24/2025 2:03 AM sinus tachycardia with a rate of 116 [place] interval [address] changes no acute ST elevation or T wave inversion. 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,disintegrating See Rx Instructions PO .COMPLEX Qty: 14 3RF Rx Instructions: take 1 tab at onset of headache; if no relief may repeat 1 tab after at least 2 hrs; max = 3 tabs/24 hr PO levetiracetam [Keppra] 500 mg tablet 500 mg PO BID Qty: 60 3RF lorazepam [Ativan] 0.5 mg tablet 0.5 mg PO BID PRN (Reason: anxiety) Qty: 60 2RF Excedrin Extra Strength 250-250-65 mg tablet 2 tab PO Q6H PRN (Reason: pain) Qty: 90 5RF ibuprofen 800 mg tablet 800 mg PO TID PRN (Reason: pain) Qty: 60 0RF hydrochlorothiazide 25 mg tablet 25 mg PO QAM Qty: 30 0RF hydroxyzine pamoate [Vistaril] 25 mg capsule 25 mg PO TID PRN (Reason: headache) Qty: 30 0RF Rx Instructions: Take one with baclofen for migraine pain. baclofen 10 mg tablet 5 mg PO TID PRN (Reason: headache) Qty: 30 0RF Rx Instructions: Take with hydroxyzine for headache pain diclofenac sodium 50 mg tablet,delayed release (DR/EC) 50 mg PO Q12H Qty: 20 0RF Discharge Orders: Discharge ED (Routine); Ordered 04/24/25 Ordered By: Corbin Katz Referrals: Jose Donald MD [Primary Care Provider, Family Practice] Discharge Diet: Usual diet Discharge Activity: Increase activity as tolerated Patient Instructions: Opioid Safety, Pain Management, Patient Portal & Romi Instructions Activity Restrictions/Additional Instructions: Thank you for choosing [facility] for your healthcare needs today. It is very important that you follow up as instructed or that you return to the Emergency Department should you have concerns or if your condition changes or worsens in any way. Emergency department visits are focused on emergent conditions, in some cases you may require further evaluation on an outpatient basis. You were seen in the emergency room with complaints of chest and back pain. These have been chronic issues per your report. Laboratory tests were done including a CBC which was normal. Chemistry panel which was also normal. Inflammatory markers urine panel was also done these were also negative. Your EKG and cardiac enzymes did not show any acute changes. Chest x-ray was normal. At this time there is no emergent condition noted. Were you are given a prescription for diclofenac. If you take the diclofenac you should not take the meloxicam or the ibuprofen at the same time. Follow-up with your primary care doctor if you continue to have issues with chronic pain. (Please note that included in your discharge packet is information concerning opioid safety and pain management. This information is given to all patients were discharged from the ER regardless of their discharge diagnosis or the medicines they usually take or are prescribed.) Print Language: Urdu Coding Level of Care Code ED Electrician Maintenance for Brock Lopez
[2025-04-24 02:22] VITALS: BP 139/108; PULSE 107; O2SAT 96
[2025-04-24 02:44] VITALS: PULSE 114; RESP 18; O2SAT 97
[2025-04-24 02:49] LABS: Glucose Urine UA Negative (Normal); Nitrate Urine Negative (Negative); Specific Gravity, Urine 1.019 (1.005-1.030)
[2025-04-24 02:54] LABS: Add Urine Microscopic? YES
[2025-04-24 02:55] LABS: Hematocrit 37.3 % (36-47); Hemoglobin 13.30 g/dL (11.27-16.99); Mean Corpuscular HGB Conc 35.7 g/dL (30-55); Mean Corpuscular Hemoglobin 31.4 pg (27-33); Mean Corpuscular Volume 88.0 fl (85-98); Nucleated Red Blood Cells % 0 %; Platelet Count 309 10^3/cmm (157-399); Red Blood Count 4.24 10^6/uL (3.85-5.65); White Blood Count 7.74 10^3/uL (3.29-11.43)
[2025-04-24 02:55] LABS: PCP Screen Urine Negative (Negative)
[2025-04-24 03:04] VITALS: BP 135/112; PULSE 107; RESP 18; O2SAT 97
[2025-04-24 03:09] LABS: UA Slide Review UA Slide Review Perf
[2025-04-24 03:24] LABS: Alanine Aminotransferase 12 U/L (0-33); Albumin Level 4.1 g/dL (3.5-5.2); Alcohol Level 201 mg/dL (0-10); Alkaline Phosphatase 61 U/L (35-105); Anion Gap 17.8 (5-19); Aspartate Amino Transferase 16 U/L (0-32); Blood Urea Nitrogen 13 mg/dL (6-20); Calcium 8.9 mg/dL (8.5-10.5); Carbon Dioxide 22 mmol/L (22-29); Chloride 108 mmol/L (98-107); Creatinine Clr Calc Pharmacy 135.1214; Globulin 2.6 g/dL (1.3-4.6); Glucose 109 mg/dL (65-115); Osmolality Calculated 299 mOsm/kg (285-295); Potassium 3.8 mmol/L (3.5-5.1); Sodium 144 mmol/L (136-145); Total Protein 6.7 g/dL (6.6-8.7)
[2025-04-24 03:25] LABS: Troponin(5th) Baseline < 6 ng/L (0-10)
[2025-04-24 03:47] VITALS: BP 128/98; PULSE 108; O2SAT 96
== END 2025-04-24 03:49 | disposition home or self-care (01) ==
PROVIDERS: Emergency Provider Family Medicine; PCP Family Medicine
DX: F10.129 Alcohol abuse with intoxication, unspecified (principal); Y90.7 Blood alcohol level of 200-239 mg/100 ml; F41.9 Anxiety disorder, unspecified; M54.89 Other dorsalgia; R07.89 Other chest pain
CPT/HCPCS: 36415; 71045; 80053; 80306; 80307; 81001; 84484; 85025; 85378; 86140; 93005; 96374; 99285; J1885; J7030; J9999